=== PATIENT | female | born 1955 | race Caucasian/White ===

== ENCOUNTER → 2016-04-22 | Outpatient (CLI) | payer OTHER ==
[~2016-04-22] VITALS: Ht 147.3 cm; Wt 86.2 kg
[~2016-04-22] MED LIST: ATOR1TAB18 PO; ECOT81TA5 PO; FURO20TA2 PO; LIDOCAINE 2% INJ 100 MG/5 ML SDV (FOR ANES.) As Ordered ONE; METF1000 PO; NOVOINJ3 SC; NS 1,000 ML IV SCH; PROPOFOL 200 MG/20 ML VIAL As Ordered ONE; TOUJ1.2I SC
--- NOTE | 2016-04-22 08:07 | ROOR ---
Patient Name: Eleonora Izquierdo Procedure Date: 04/22/2016 7:35 AM Date of : 1955 Age: 61 Room: [facility] Gender: Female Note Status: Finalized Procedure: Colonoscopy to Cecum + Cold Snare Polypectomy Indications: Iron deficiency anemia, Follow-up for history of adenomatous polyps in the colon, Abnormal barium enema Providers: Nicolás Silver MD Referring MD: MAURI BENNETT MD Requesting Provider: Medicines: Monitored Anesthesia Care Complications: No immediate complications. Procedure: Pre-Anesthesia Assessment: - The heart rate, respiratory rate, oxygen saturations, blood pressure, adequacy of pulmonary ventilation, and response to care were monitored throughout the procedure. The Colonoscope was introduced through the anus and advanced to the cecum, identified by appendiceal orifice and ileocecal valve. The colonoscopy was performed without difficulty. The patient tolerated the procedure well. The quality of the bowel preparation was excellent. Findings: The perianal and digital rectal examinations were normal. Non-bleeding internal hemorrhoids were found during retroflexion. The hemorrhoids were small and Grade I (internal hemorrhoids that do not prolapse). A small polyp was found in the mid ascending colon. The polyp was sessile. The polyp was removed with a cold snare. Resection and retrieval were complete. The exam was otherwise without abnormality on direct and retroflexion views. Impression: - Non-bleeding internal hemorrhoids. - One small polyp in the mid ascending colon, removed with a cold snare. Resected and retrieved. - The examination was otherwise normal on direct and retroflexion views. - The exam was otherwise normal to the cecum. Recommendation: - Discharge patient to home. - Continue present medications. - Await pathology results. - Telephone GI clinic for pathology results in 1 week. - Repeat colonoscopy in 5 years for surveillance based on pathology results. - Return to referring physician. - The findings and recommendations were discussed with the patient's family. Nicolás Silver MD Nicolás Silver MD 04/22/2016 8:07:14 AM This report has been signed electronically. Number of Addenda: 0 Note Initiated On: 04/22/2016 7:35 AM Estimated Blood Loss: Estimated blood loss: none.
[2016-04-22 08:27] VITALS: BP 178/89
== END | disposition home or self-care (01) ==
LOC: M OPP 06:30
PROVIDERS: ATTEND Internal Medicine Gastroenterology
DX: D50.9 Iron deficiency anemia, unspecified (principal); K64.0 First degree hemorrhoids; D12.2 Benign neoplasm of ascending colon; E78.00 Pure hypercholesterolemia, unspecified; E11.9 Type 2 diabetes mellitus without complications; R06.83 Snoring; Z79.84 Long term (current) use of oral hypoglycemic drugs; Z79.899 Other long term (current) drug therapy; Z79.4 Long term (current) use of insulin

== ENCOUNTER 2017-08-12 12:39 | Emergency (ER) | payer OTHER ==
[2017-08-12] MEDS: NS 1,000 ML IV (13:00)
[2017-08-12] MEDS: CEFTAROLINE FOSAMIL 600 MG in D5W MINI-BAG PLUS 50 ML IV (13:00)
[2017-08-12 13:26] LABS: HEMATOCRIT 35.5 % (36.0-47.0); HEMOGLOBIN 11.1 g/dl (12.0-15.5); MEAN CORPUSCULAR HEMOGLOBIN 27.9 pg (27.0-33.0); MEAN CORPUSCULAR HGB CONC 31.3 g/dl (32.0-36.5); MEAN CORPUSCULAR VOLUME 89.2 fl (80.0-96.0); PLATELET COUNT, AUTOMATED 301 10^3/uL (150-450); RED BLOOD COUNT 3.98 10^6/uL (4.00-5.40); RED CELL DISTRIBUTION WIDTH 16.8 % (11.5-14.5); WHITE BLOOD COUNT 9.5 10^3/uL (4.0-10.0)
[2017-08-12] MEDS: ACETAMINOPHEN TAB 650MG DOSE (2X325MG) PO (13:32)
[2017-08-12 13:46] LABS: ANION GAP 5 MEQ/L (8-16); BLOOD UREA NITROGEN 21 MG/DL (7-18); CALCIUM LEVEL 8.8 MG/DL (8.8-10.2); CARBON DIOXIDE LEVEL 29 MEQ/L (21-32); CHLORIDE LEVEL 106 MEQ/L (98-107); CREATININE FOR GFR 0.65 MG/DL (0.55-1.30); GLOMERULAR FILTRATION RATE > 60.0 (>45); GLUCOSE, FASTING 145 MG/DL (70-100); POTASSIUM SERUM 4.2 MEQ/L (3.5-5.1); SODIUM LEVEL 140 MEQ/L (136-145)
== END 2017-08-12 15:29 | disposition home or self-care (01) ==
LOC: M ED 12:39
DX: L03.311 Cellulitis of abdominal wall (principal); E11.9 Type 2 diabetes mellitus without complications
CPT/HCPCS: J0712

== ENCOUNTER → 2017-08-12 | Day surgery (SDC) | payer OTHER ==
[~2017-08-12] MED LIST changes: -ATOR1TAB18 PO; +AcetaZOLAMIDE 500MG INJECTION (J1120) IV; -ECOT81TA5 PO; -FURO20TA2 PO; -LIDOCAINE 2% INJ 100 MG/5 ML SDV (FOR ANES.) As Ordered ONE; +LIDOCAINE 3.5 % 1ML OPHTH TOPICAL GEL OU; +LR 1,000 ML IV; +MANNITOL 20% BAG 250 ML IV; -METF1000 PO; -NOVOINJ3 SC; -NS 1,000 ML IV SCH; +OFLOXACIN 0.3 % (OCUFLOX) OPTH SOL 5ML OD; -PROPOFOL 200 MG/20 ML VIAL As Ordered ONE; -TOUJ1.2I SC
[2017-08-12] MEDS: MAXITROL OPHTH OINT 3.5 GM As Ordered (06:53)
[2017-08-12] MEDS: LIDOCAINE 2% W/EPIN INJ 20ML **PRES FREE As Ordered (06:53)
[2017-08-12] MEDS: mitoMYcin 0.2 MG/VIAL KIT FOR OPHTHALMIC USE (J7315 PER 0.2MG) As Ordered (06:53)
[2017-08-12 12:33] LABS: BEDSIDE GLUCOSE 163 MG/DL (80-115)
== END | disposition home or self-care (01) ==
LOC: M SDC 11:43
DX: Z53.09 Procedure and treatment not carried out because of other contraindication (principal); H40.10X0 Unspecified open-angle glaucoma, stage unspecified; R50.9 Fever, unspecified; R53.81 Other malaise; R21 Rash and other nonspecific skin eruption

== ENCOUNTER → 2023-11-10 | Outpatient (CLI) | payer MEDICARE ==
[~2023-11-10] MED LIST changes: +ATOR80TA59 PO; -AcetaZOLAMIDE 500MG INJECTION (J1120) IV; +BACT800T5 PO; +CLOP75TA99 PO; +COMB0.2S OU; +ECOT81TA5 PO; +FARX1TAB3 PO; +FIAS100I2 SC; +FURO20TA2 PO; +FURO40TA2; +FURO40TA2 PO; +LATA0.0013 OU; -LIDOCAINE 3.5 % 1ML OPHTH TOPICAL GEL OU; +LISI40TA4 PO; -LR 1,000 ML IV; -MANNITOL 20% BAG 250 ML IV; +METF10004 PO; +METO25TA4 PO; +NOVOINJ3 SC; -OFLOXACIN 0.3 % (OCUFLOX) OPTH SOL 5ML OD; +PROP325C11 PO; +ROSU20TA61 PO; +SPIR-10 PO; +TOUJ1.2I SC; +TRUL0.5I
== END ==
LOC: M PAIN 13:00
PROVIDERS: ATTEND Nurse Practitioner Family
DX: M79.12 Myalgia of auxiliary muscles, head and neck (principal); M54.2 Cervicalgia; M96.1 Postlaminectomy syndrome, not elsewhere classified; G89.29 Other chronic pain; E11.9 Type 2 diabetes mellitus without complications; E83.42 Hypomagnesemia; I10 Essential (primary) hypertension; E78.5 Hyperlipidemia, unspecified; K21.9 Gastro-esophageal reflux disease without esophagitis; Z79.82 Long term (current) use of aspirin; Z79.02 Long term (current) use of antithrombotics/antiplatelets; Z79.899 Other long term (current) drug therapy

== ENCOUNTER → 2024-01-12 | Outpatient (CLI) | payer MEDICARE, OTHER ==
[~2024-01-12] MED LIST changes: -ROSU20TA61 PO; +ROSU20TA86 PO; +TRIAMCINOLONE ACETONIDE SUSP 40MG/ML 1ML VIAL As Ordered ONE
== END ==
LOC: M PAIN 11:00
PROVIDERS: ATTEND Anesthesiology
DX: M79.12 Myalgia of auxiliary muscles, head and neck (principal); M79.18 Myalgia, other site; M54.2 Cervicalgia; E11.9 Type 2 diabetes mellitus without complications; E83.42 Hypomagnesemia; I10 Essential (primary) hypertension; E78.5 Hyperlipidemia, unspecified; K21.9 Gastro-esophageal reflux disease without esophagitis; Z79.01 Long term (current) use of anticoagulants; Z79.899 Other long term (current) drug therapy; Z79.82 Long term (current) use of aspirin; Z53.09 Procedure and treatment not carried out because of other contraindication

== ENCOUNTER → 2024-03-09 | Outpatient (CLI) | payer MEDICARE, OTHER ==
[~2024-03-09] MED LIST changes: -TRIAMCINOLONE ACETONIDE SUSP 40MG/ML 1ML VIAL As Ordered ONE
== END ==
LOC: M PAIN 10:15
PROVIDERS: ATTEND Anesthesiology
DX: M79.10 Myalgia, unspecified site (principal); M79.18 Myalgia, other site; M54.2 Cervicalgia; E11.9 Type 2 diabetes mellitus without complications; E83.42 Hypomagnesemia; I10 Essential (primary) hypertension; E78.5 Hyperlipidemia, unspecified; K21.9 Gastro-esophageal reflux disease without esophagitis; R10.13 Epigastric pain; Z79.82 Long term (current) use of aspirin; Z79.899 Other long term (current) drug therapy; Z79.01 Long term (current) use of anticoagulants

== ENCOUNTER 2024-04-12 10:53 | Emergency (ER) | payer MEDICARE ==
[~2024-04-12] VITALS: Ht 144.8 cm; Wt 88.0 kg
[2024-04-12] MEDS ORDERED: ELIQ2.5T (11:13)
[2024-04-12 12:17] LABS: BASO # 0.1 10^3/uL (0.0-0.2); BASO % 1.1 % (0.0-1.0); EOS # 0.2 10^3/uL (0.0-0.5); EOS % 3.9 % (0.0-3.0); HEMATOCRIT 44.8 % (36.0-47.0); HEMOGLOBIN 13.9 g/dl (12.0-15.5); LYMPH # 1.8 10^3/uL (1.5-5.0); LYMPH % 39.4 % (24.0-44.0); MEAN CORPUSCULAR HEMOGLOBIN 29.2 pg (27.0-33.0); MEAN CORPUSCULAR VOLUME 94.1 fl (80.0-96.0); MONO # 0.3 10^3/uL (0.0-0.8); MONO % 6.2 % (2.0-8.0); NEUTROPHILS # 2.3 10^3/uL (1.5-8.5); NEUTROPHILS % 49.2 % (36.0-66.0); PLATELET COUNT, AUTOMATED 177 10^3/uL (150-450); RED BLOOD COUNT 4.76 10^6/uL (4.00-5.40); WHITE BLOOD COUNT 4.7 10^3/uL (4.0-10.0)
[2024-04-12 12:35] LABS: INR 0.95; PARTIAL THROMBOPLASTIN TIME 28.8 SECONDS (24.8-34.2)
[2024-04-12 12:40] LABS: AMYLASE 55 U/L (30-118)
[2024-04-12 12:47] LABS: PROCALCITONIN 0.11 ng/ml
[2024-04-12 12:48] LABS: ALKALINE PHOSPHATASE 176 U/L (35-104); ALT/SGPT 34 U/L (7.0-40); AST/SGOT 87 U/L (<34); BILIRUBIN,DIRECT 0.2 MG/DL (<0.4); BILIRUBIN,TOTAL 0.5 MG/DL (0.3-1.2); BLOOD UREA NITROGEN 34 MG/DL (9-23); CALCIUM LEVEL 8.1 MG/DL (8.3-10.6); CARBON DIOXIDE LEVEL 27 MMOL/L (20-31); CHLORIDE LEVEL 108 MMOL/L (98-107); CREATININE FOR GFR 0.86 MG/DL (0.55-1.30); GLOMERULAR FILTRATION RATE > 60.0 (>45); GLUCOSE, FASTING 114 MG/DL (74-106); LIPASE 78 U/L (12-53); POTASSIUM SERUM 5.5 MMOL/L (3.5-5.1); SODIUM LEVEL 141 MMOL/L (136-145); TOTAL PROTEIN 8.5 G/DL (5.7-8.2)
[2024-04-12 17:24] VITALS: TEMP 97
[2024-04-12 17:59] LABS: BLOOD UREA NITROGEN 34 MG/DL (9-23); CALCIUM LEVEL 7.8 MG/DL (8.3-10.6); CARBON DIOXIDE LEVEL 26 MMOL/L (20-31); CHLORIDE LEVEL 111 MMOL/L (98-107); CREATININE FOR GFR 0.79 MG/DL (0.55-1.30); GLOMERULAR FILTRATION RATE > 60.0 (>45); GLUCOSE, FASTING 81 MG/DL (74-106); POTASSIUM SERUM 4.7 MMOL/L (3.5-5.1); SODIUM LEVEL 142 MMOL/L (136-145)
[2024-04-12 19:01] VITALS: BP 142/65; O2SAT 97
== END 2024-04-12 19:24 | disposition home or self-care (01) ==
LOC: M ED 10:53
DX: R18.8 Other ascites (principal); E11.9 Type 2 diabetes mellitus without complications; I25.2 Old myocardial infarction; K74.60 Unspecified cirrhosis of liver; Z86.79 Personal history of other diseases of the circulatory system; Z79.01 Long term (current) use of anticoagulants; Z79.811 Long term (current) use of aromatase inhibitors; Z79.899 Other long term (current) drug therapy

== ENCOUNTER → 2024-04-20 | Outpatient (CLI) | payer MEDICARE ==
[~2024-04-20] MED LIST changes: +ELIQ2.5T
[2024-04-20 12:25] VITALS: TEMP 98.9
[2024-04-20 13:17] VITALS: BP 150/65; O2SAT 98
[2024-04-20 13:21] VITALS: BP 128/46; O2SAT 99
[2024-04-20 13:24] VITALS: BP 120/60; O2SAT 100
== END ==
LOC: M IRPRO 12:10
PROVIDERS: ATTEND Family Medicine
DX: K74.60 Unspecified cirrhosis of liver (principal); R18.8 Other ascites
CPT/HCPCS: 49083; 96374; P9047

== ENCOUNTER 2024-05-19 13:16 | Inpatient (IN) | payer MEDICARE, OTHER ==
[~2024-05-19] VITALS: Ht 144.8 cm; Wt 90.7 kg
[~2024-05-19 13:16] MED LIST changes: -SPIR50TA4 PO
[2024-05-19 19:25] LABS: BASO # 0.1 10^3/uL (0.0-0.2); BASO % 1.3 % (0.0-1.0); EOS # 0.1 10^3/uL (0.0-0.5); EOS % 2.8 % (0.0-3.0); HEMATOCRIT 46.5 % (36.0-47.0); HEMOGLOBIN 14.5 g/dl (12.0-15.5); LYMPH # 2.2 10^3/uL (1.5-5.0); LYMPH % 47.5 % (24.0-44.0); MEAN CORPUSCULAR HEMOGLOBIN 29.1 pg (27.0-33.0); MEAN CORPUSCULAR HGB CONC 31.2 g/dl (32.0-36.5); MEAN CORPUSCULAR VOLUME 93.4 fl (80.0-96.0); MONO # 0.3 10^3/uL (0.0-0.8); NEUTROPHILS % 42.2 % (36.0-66.0); PLATELET COUNT, AUTOMATED 197 10^3/uL (150-450); RED BLOOD COUNT 4.98 10^6/uL (4.00-5.40); WHITE BLOOD COUNT 4.7 10^3/uL (4.0-10.0)
[2024-05-19 19:39] LABS: INR 0.98; PARTIAL THROMBOPLASTIN TIME 28.2 SECONDS (24.8-34.2); PROTHROMBIN TIME 13.3 SECONDS (12.5-14.5)
[2024-05-19 21:07] LABS: PROCALCITONIN 0.11 ng/ml
[2024-05-19 21:09] LABS: ALBUMIN 1.4 G/DL (3.2-5.2); ALKALINE PHOSPHATASE 183 U/L (35-104); ALT/SGPT 31 U/L (7.0-40); AST/SGOT 54 U/L (<34); BILIRUBIN,DIRECT 0.1 MG/DL (<0.4); BILIRUBIN,TOTAL 0.4 MG/DL (0.3-1.2); BLOOD UREA NITROGEN 22 MG/DL (9-23); CALCIUM LEVEL 6.8 MG/DL (8.3-10.6); CARBON DIOXIDE LEVEL 21 MMOL/L (20-31); CHLORIDE LEVEL 114 MMOL/L (98-107); CREATININE FOR GFR 0.63 MG/DL (0.55-1.30); GLOMERULAR FILTRATION RATE > 60.0 (>45); GLUCOSE, FASTING 82 MG/DL (74-106); POTASSIUM SERUM 4.5 MMOL/L (3.5-5.1); SODIUM LEVEL 142 MMOL/L (136-145); TOTAL PROTEIN 6.5 G/DL (5.7-8.2)
[2024-05-19] MEDS ORDERED: SPIR50TA4 PO (22:13)
[2024-05-19] MEDS ORDERED: MED REC IN PROGRESS XX SCH (22:15)
[2024-05-19] MEDS ORDERED: DEXTROSE 50% 50ML SYRINGE IV PRN (22:50)
[2024-05-19] MEDS ORDERED: MOM 30ML SUSPENSION UDC PO PRN (22:50)
[2024-05-19] MEDS ORDERED: GLUCAGON INJ 1MG VIAL SC PRN (22:50)
[2024-05-19] MEDS ORDERED: GLUCOSE 4 GM CHEW PO PRN (22:50)
[2024-05-19] MEDS: cefTRIAXone SOD 1 GM in DEXTROSE 5% (D5W) ADV/MINI-BAG 50 ML IV SCH (23:13)
[2024-05-19] MEDS: INSULIN LISPRO (NovoLOG) PER UNIT SC SCH (23:25)
[2024-05-20] VITALS (9 sets, daily range): BP systolic 142–169; BP diastolic 42–74; TEMP 98.1–98.8; O2SAT 95–100
[2024-05-20] MEDS ORDERED: HOME MED LIST COMPLETE! XX SCH (02:05)
[2024-05-20 06:43] LABS: HEMATOCRIT 40.2 % (36.0-47.0); HEMOGLOBIN 12.6 g/dl (12.0-15.5); MEAN CORPUSCULAR HGB CONC 31.3 g/dl (32.0-36.5); MEAN CORPUSCULAR VOLUME 92.6 fl (80.0-96.0); PLATELET COUNT, AUTOMATED 177 10^3/uL (150-450); RED BLOOD COUNT 4.34 10^6/uL (4.00-5.40); WHITE BLOOD COUNT 4.7 10^3/uL (4.0-10.0)
[2024-05-20 07:18] LABS: ALBUMIN 1.4 G/DL (3.2-5.2); ALKALINE PHOSPHATASE 193 U/L (35-104); ALT/SGPT 28 U/L (7.0-40); AST/SGOT 51 U/L (<34); BILIRUBIN,TOTAL 0.3 MG/DL (0.3-1.2); BLOOD UREA NITROGEN 27 MG/DL (9-23); CALCIUM LEVEL 7.8 MG/DL (8.3-10.6); CARBON DIOXIDE LEVEL 22 MMOL/L (20-31); CHLORIDE LEVEL 109 MMOL/L (98-107); CREATININE FOR GFR 0.77 MG/DL (0.55-1.30); GLOMERULAR FILTRATION RATE > 60.0 (>45); GLUCOSE, FASTING 133 MG/DL (74-106); POTASSIUM SERUM 4.6 MMOL/L (3.5-5.1); SODIUM LEVEL 138 MMOL/L (136-145); TOTAL PROTEIN 6.7 G/DL (5.7-8.2)
[2024-05-20] MEDS ORDERED: SPIRONOLACTONE 25 MG TAB PO SCH (09:00)
[2024-05-20] MEDS ORDERED: PROPAFENONE 150 MG TAB PO SCH (09:00)
[2024-05-20] MEDS: ROSUVASTATIN 10 MG TAB (CRESTOR) PO SCH (09:04)
[2024-05-20] MEDS: FUROSEMIDE 40 MG TAB PO SCH (09:04)
[2024-05-20] MEDS: lisinopriL 40MG TAB PO SCH (09:05)
[2024-05-20] MEDS: METOPROLOL TART 25 MG TABLET PO SCH (09:06)
[2024-05-20] MEDS: SPIRONOLACTONE 50 MG TAB PO SCH (09:06)
[2024-05-20] MEDS: INSULIN LISPRO (NovoLOG) PER UNIT SC SCH ×2 (18:20→20:04)
[2024-05-21 02:43] VITALS: BP 144/59; TEMP 98.6; O2SAT 96
[2024-05-21 04:41] VITALS: BP 141/56; TEMP 98.4; O2SAT 96
[2024-05-21 06:26] LABS: HEMATOCRIT 37.8 % (36.0-47.0); HEMOGLOBIN 11.6 g/dl (12.0-15.5); MEAN CORPUSCULAR HEMOGLOBIN 28.7 pg (27.0-33.0); MEAN CORPUSCULAR HGB CONC 30.7 g/dl (32.0-36.5); MEAN CORPUSCULAR VOLUME 93.6 fl (80.0-96.0); PLATELET COUNT, AUTOMATED 153 10^3/uL (150-450); RED BLOOD COUNT 4.04 10^6/uL (4.00-5.40); WHITE BLOOD COUNT 4.6 10^3/uL (4.0-10.0)
[2024-05-21 07:03] LABS: ALBUMIN 1.9 G/DL (3.2-5.2); ALKALINE PHOSPHATASE 190 U/L (35-104); ALT/SGPT 27 U/L (7.0-40); AST/SGOT 50 U/L (<34); BILIRUBIN,TOTAL 0.4 MG/DL (0.3-1.2); BLOOD UREA NITROGEN 26 MG/DL (9-23); CALCIUM LEVEL 8.1 MG/DL (8.3-10.6); CARBON DIOXIDE LEVEL 23 MMOL/L (20-31); CHLORIDE LEVEL 111 MMOL/L (98-107); CREATININE FOR GFR 0.83 MG/DL (0.55-1.30); GLOMERULAR FILTRATION RATE > 60.0 (>45); GLUCOSE, FASTING 122 MG/DL (74-106); POTASSIUM SERUM 4.2 MMOL/L (3.5-5.1); SODIUM LEVEL 143 MMOL/L (136-145); TOTAL PROTEIN 6.6 G/DL (5.7-8.2)
[2024-05-21 08:20] VITALS: BP 142/58
== END 2024-05-21 10:30 | disposition home or self-care (01) | DRG 433 ==
LOC: M ED 13:16 → M ED INP 22:47 → M MSPAV 05-20 11:40
PROVIDERS: ADMIT Student in an Organized Health Care Education/Training Program; ATTEND Internal Medicine
PROC: 30233J1 Transfusion of Nonautologous Serum Albumin into Peripheral Vein, Percutaneous Approach (ICD-10-PCS; 2024-05-20)
PROC: 0W9G3ZZ Drainage of Peritoneal Cavity, Percutaneous Approach (ICD-10-PCS; principal; 2024-05-20 15:00)
DX: K74.60 Unspecified cirrhosis of liver (principal); R18.8 Other ascites; E11.42 Type 2 diabetes mellitus with diabetic polyneuropathy; I10 Essential (primary) hypertension; E78.5 Hyperlipidemia, unspecified; M54.9 Dorsalgia, unspecified; G89.29 Other chronic pain; D47.2 Monoclonal gammopathy; H40.9 Unspecified glaucoma; I87.2 Venous insufficiency (chronic) (peripheral); K21.9 Gastro-esophageal reflux disease without esophagitis; I25.2 Old myocardial infarction; E66.9 Obesity, unspecified; Z98.84 Bariatric surgery status; Z90.79 Acquired absence of other genital organ(s); Z87.891 Personal history of nicotine dependence; Z79.01 Long term (current) use of anticoagulants; Z79.4 Long term (current) use of insulin; Z79.899 Other long term (current) drug therapy

== ENCOUNTER → 2024-05-19 | Outpatient (REF) | payer OTHER ==
[~2024-05-19] MED LIST changes: -ELIQ2.5T; +ELIQ2.5T PO; +SPIR50TA4 PO
[2024-05-23 14:32] LABS: FREE KAPPA LIGHT CHAINS URINE 785.54 mg/L (<=32.90); FREE LAMBDA LIGHT CHAINS URINE 30.35 mg/L (<=3.79); KAPPA/LAMBDA RATIO URINE 25.88 (<=8.69)
== END ==
LOC: M LAB REF 12:50
PROVIDERS: ATTEND Internal Medicine Hematology & Oncology
DX: C90.00 Multiple myeloma not having achieved remission (principal)

== ENCOUNTER → 2024-05-27 | Outpatient (CLI) | payer MEDICARE ==
[~2024-05-27] MED LIST changes: +SPIR50TA4 PO
[2024-05-27 13:18] LABS: HEPATITIS B SURFACE ANTIBODY NEGATIVE (POSITIVE)
[2024-05-27 13:29] LABS: HEPATITIS B SURFACE ANTIGEN NEGATIVE (NEGATIVE)
[2024-05-27 13:50] LABS: HEPATITIS B CORE ANTIBODY IGM NEGATIVE (NEGATIVE); HEPATITIS C VIRUS ABY INDEX 0.16 INDEX (<0.8)
[2024-05-27 13:52] LABS: ALBUMIN 1.9 G/DL (3.2-5.2); ALKALINE PHOSPHATASE 220 U/L (35-104); ALT/SGPT 38 U/L (7.0-40); AST/SGOT 61 U/L (<34); BILIRUBIN,TOTAL 0.4 MG/DL (0.3-1.2); BLOOD UREA NITROGEN 29 MG/DL (9-23); CALCIUM LEVEL 8.2 MG/DL (8.3-10.6); CARBON DIOXIDE LEVEL 27 MMOL/L (20-31); CHLORIDE LEVEL 107 MMOL/L (98-107); CREATININE FOR GFR 0.82 MG/DL (0.55-1.30); GLOMERULAR FILTRATION RATE > 60.0 (>45); GLUCOSE, FASTING 140 MG/DL (74-106); POTASSIUM SERUM 4.8 MMOL/L (3.5-5.1); SODIUM LEVEL 140 MMOL/L (136-145)
[2024-05-27 14:25] VITALS: TEMP 97.4
[2024-05-27 15:31] VITALS: BP 134/66; O2SAT 98
[2024-05-30 17:12] LABS: ANTI-MITOCHONDRIAL ANTIBODY NEGATIVE (NEGATIVE)
[2024-05-31 12:57] LABS: ANA PATTERN Nuclear, Speckled (NEGATIVE); ANA SCREEN, IFA POSITIVE (NEGATIVE)
== END ==
LOC: M IRPRO 11:17
PROVIDERS: ATTEND Internal Medicine Gastroenterology
DX: R18.8 Other ascites (principal); K74.60 Unspecified cirrhosis of liver; C90.00 Multiple myeloma not having achieved remission; Z11.59 Encounter for screening for other viral diseases
CPT/HCPCS: 36415; 49083; 77075; 80053; 86038; 86039; 86255; 86705; 86706; 86803; 87340; 96374; P9047

== ENCOUNTER → 2024-05-27 | Outpatient (CLI) | payer MEDICARE | LOC: M RAD 11:26 | PROVIDERS: ATTEND Internal Medicine Hematology & Oncology | DX: C90.00 Multiple myeloma not having achieved remission (principal) ==

== ENCOUNTER → 2024-06-03 | Outpatient (CLI) | payer MEDICARE ==
[2024-06-03 13:52] VITALS: TEMP 99.1
[2024-06-03 15:05] VITALS: BP 135/65; O2SAT 98
== END ==
LOC: M IRPRO 13:27
PROVIDERS: ATTEND Internal Medicine Gastroenterology
DX: R18.8 Other ascites (principal)
CPT/HCPCS: 49083; 96365; P9047

== ENCOUNTER → 2024-06-10 | Outpatient (CLI) | payer MEDICARE ==
[2024-06-10 14:23] VITALS: BP 174/74; O2SAT 99
[2024-06-10 14:27] VITALS: BP 174/72; O2SAT 98
[2024-06-10 14:42] VITALS: BP 157/55; O2SAT 98
[2024-06-10 14:54] VITALS: BP 177/77; TEMP 97.2; O2SAT 98
== END ==
LOC: M IRPRO 12:48
PROVIDERS: ATTEND Internal Medicine Gastroenterology
DX: R18.8 Other ascites (principal)
CPT/HCPCS: 49083; 96365; P9047

== ENCOUNTER → 2024-06-17 | Outpatient (CLI) | payer MEDICARE ==
[2024-06-17 13:37] VITALS: BP 147/68; TEMP 97.6; O2SAT 98
[2024-06-17 13:46] VITALS: BP 135/64; O2SAT 99
[2024-06-17 14:00] VITALS: BP 132/56; O2SAT 98
[2024-06-17 14:15] VITALS: BP 140/63; O2SAT 99
== END ==
LOC: M IRPRO 12:15
PROVIDERS: ATTEND Internal Medicine Gastroenterology
DX: R18.8 Other ascites (principal)
CPT/HCPCS: 49083; 96365; P9047

== ENCOUNTER → 2024-06-21 | Outpatient (CLI) | payer MEDICARE, OTHER ==
[~2024-06-21] MED LIST changes: +LIDOCAINE 1% MDV 20ML VIAL IM ONE; +NS (Normal Saline) 0.9% 1,000 ML IV SCH
[2024-06-21 08:24] VITALS: TEMP 98.2
[2024-06-21 08:37] LABS: BASO # 0.1 10^3/uL (0.0-0.2); BASO % 0.8 % (0.0-1.0); EOS # 0.2 10^3/uL (0.0-0.5); EOS % 2.5 % (0.0-3.0); HEMATOCRIT 42.6 % (36.0-47.0); HEMOGLOBIN 13.3 g/dl (12.0-15.5); MEAN CORPUSCULAR HEMOGLOBIN 29.4 pg (27.0-33.0); MEAN CORPUSCULAR HGB CONC 31.2 g/dl (32.0-36.5); MEAN CORPUSCULAR VOLUME 94.2 fl (80.0-96.0); MONO # 0.4 10^3/uL (0.0-0.8); MONO % 6.2 % (2.0-8.0); NEUTROPHILS # 3.5 10^3/uL (1.5-8.5); NEUTROPHILS % 57.3 % (36.0-66.0); PLATELET COUNT, AUTOMATED 182 10^3/uL (150-450); RED BLOOD COUNT 4.52 10^6/uL (4.00-5.40); WHITE BLOOD COUNT 6.1 10^3/uL (4.0-10.0)
[2024-06-21 09:40] VITALS: BP 128/57; O2SAT 96
[2024-06-21] MEDS: LIDOCAINE 1% MDV 20ML VIAL IM STA (09:48)
== END ==
LOC: M IRPRO 07:58
PROVIDERS: ATTEND Internal Medicine Hematology & Oncology
DX: C90.00 Multiple myeloma not having achieved remission (principal); K74.60 Unspecified cirrhosis of liver; R18.8 Other ascites

== ENCOUNTER → 2024-06-21 | Outpatient (CLI) | payer MEDICARE ==
[~2024-06-21] MED LIST changes: -LIDOCAINE 1% MDV 20ML VIAL IM ONE; -NS (Normal Saline) 0.9% 1,000 ML IV SCH
[2024-06-21 09:04] LABS: ALBUMIN 2.2 G/DL (3.2-5.2); BILIRUBIN,TOTAL 0.5 MG/DL (0.3-1.2); CALCIUM LEVEL 8.3 MG/DL (8.3-10.6); CREATININE FOR GFR 1.07 MG/DL (0.55-1.30); GLOMERULAR FILTRATION RATE 54.1 (>45); POTASSIUM SERUM 4.5 MMOL/L (3.5-5.1); TOTAL PROTEIN 6.8 G/DL (5.7-8.2)
== END ==
LOC: M LAB 08:06
PROVIDERS: ATTEND Internal Medicine Gastroenterology
DX: K74.60 Unspecified cirrhosis of liver (principal); R18.8 Other ascites

== ENCOUNTER → 2024-06-24 | Outpatient (CLI) | payer MEDICARE ==
[2024-06-24 13:10] VITALS: TEMP 98.1
[2024-06-24 14:16] VITALS: BP 131/60; O2SAT 99
[2024-06-24 14:26] VITALS: BP 123/60; O2SAT 100
[2024-06-24 14:40] VITALS: BP 145/65; O2SAT 99
[2024-06-24 14:45] VITALS: BP 127/60; O2SAT 99
== END ==
LOC: M IRPRO 13:04
PROVIDERS: ATTEND Internal Medicine Gastroenterology
DX: R18.8 Other ascites (principal)
CPT/HCPCS: 49083; 96365; P9047

== ENCOUNTER → 2024-07-07 | Outpatient (CLI) | payer MEDICARE ==
[2024-07-07 12:08] VITALS: TEMP 97.6
[2024-07-07 12:42] VITALS: BP 129/62; O2SAT 95
[2024-07-07 12:48] VITALS: BP 129/56; O2SAT 96
[2024-07-07 12:52] VITALS: BP 128/59; O2SAT 96
[2024-07-07 12:59] VITALS: BP 126/54; O2SAT 96
[2024-07-07 13:00] VITALS: BP 138/60; O2SAT 96
== END ==
LOC: M IRPRO 11:57
PROVIDERS: ATTEND Internal Medicine Gastroenterology
DX: R18.8 Other ascites (principal)
CPT/HCPCS: 49083; 96365; P9047

== ENCOUNTER → 2024-07-14 | Outpatient (CLI) | payer MEDICARE | LOC: M IRPRO 10:32 | PROVIDERS: ATTEND Internal Medicine Gastroenterology | DX: R18.8 Other ascites (principal) ==

== ENCOUNTER → 2024-07-27 | Outpatient (CLI) | payer MEDICARE ==
[2024-07-27 16:12] LABS: EOS # 0.2 10^3/uL (0.0-0.5); EOS % 5.2 % (0.0-3.0); HEMATOCRIT 41.2 % (36.0-47.0); HEMOGLOBIN 12.7 g/dl (12.0-15.5); LYMPH # 1.5 10^3/uL (1.5-5.0); LYMPH % 37.1 % (24.0-44.0); MEAN CORPUSCULAR HEMOGLOBIN 29.7 pg (27.0-33.0); MEAN CORPUSCULAR HGB CONC 30.8 g/dl (32.0-36.5); MEAN CORPUSCULAR VOLUME 96.3 fl (80.0-96.0); MONO # 0.2 10^3/uL (0.0-0.8); MONO % 5.9 % (2.0-8.0); NEUTROPHILS # 2.1 10^3/uL (1.5-8.5); NEUTROPHILS % 50.8 % (36.0-66.0); PLATELET COUNT, AUTOMATED 187 10^3/uL (150-450); RED BLOOD COUNT 4.28 10^6/uL (4.00-5.40); WHITE BLOOD COUNT 4.1 10^3/uL (4.0-10.0)
[2024-07-27 16:29] LABS: PROTHROMBIN TIME 13.5 SECONDS (12.5-14.5)
[2024-07-27 16:39] LABS: ALBUMIN 2.2 G/DL (3.2-5.2); BILIRUBIN,TOTAL 0.5 MG/DL (0.3-1.2); CALCIUM LEVEL 8.3 MG/DL (8.3-10.6); CREATININE FOR GFR 0.81 MG/DL (0.55-1.30); GLOMERULAR FILTRATION RATE 78.5 (>45); POTASSIUM SERUM 4.7 MMOL/L (3.5-5.1); TOTAL PROTEIN 7.3 G/DL (5.7-8.2)
== END ==
LOC: M LAB 14:46
PROVIDERS: ATTEND Internal Medicine Gastroenterology
DX: K74.60 Unspecified cirrhosis of liver (principal); R18.8 Other ascites

== ENCOUNTER → 2024-07-27 | Outpatient (CLI) | payer MEDICARE ==
[2024-07-27 15:47] VITALS: TEMP 97.6
[2024-07-27 16:01] VITALS: BP 157/72; O2SAT 98
[2024-07-27 16:04] VITALS: BP 163/66; O2SAT 97
[2024-07-27 16:08] VITALS: BP 147/64; O2SAT 99
[2024-07-27 16:11] VITALS: BP 138/68; O2SAT 99
[2024-07-27 16:12] LABS: EOS # 0.2 10^3/uL (0.0-0.5); EOS % 4.5 % (0.0-3.0); HEMATOCRIT 41.8 % (36.0-47.0); HEMOGLOBIN 12.7 g/dl (12.0-15.5); LYMPH # 1.6 10^3/uL (1.5-5.0); LYMPH % 37.8 % (24.0-44.0); MEAN CORPUSCULAR HEMOGLOBIN 29.3 pg (27.0-33.0); MEAN CORPUSCULAR HGB CONC 30.4 g/dl (32.0-36.5); MEAN CORPUSCULAR VOLUME 96.3 fl (80.0-96.0); MONO # 0.3 10^3/uL (0.0-0.8); MONO % 6.2 % (2.0-8.0); NEUTROPHILS # 2.1 10^3/uL (1.5-8.5); NEUTROPHILS % 50.3 % (36.0-66.0); PLATELET COUNT, AUTOMATED 191 10^3/uL (150-450); RED BLOOD COUNT 4.34 10^6/uL (4.00-5.40); WHITE BLOOD COUNT 4.2 10^3/uL (4.0-10.0)
[2024-07-27 16:14] VITALS: BP 136/63; O2SAT 98
[2024-07-27 16:18] LABS: ERYTHROCYTE SEDIMENTATION RATE 120 mm/hr (0-30)
[2024-07-27 16:21] LABS: HEMOGLOBIN A1c 6.4 % (4.0-6.0)
[2024-07-27 16:25] LABS: APPEARANCE, URINE HAZY (CLEAR); BACTERIA, URINE AUTO 1+ (NEGATIVE); BILIRUBIN, URINE AUTO NEGATIVE (NEGATIVE); BLOOD, URINE BLOOD 1+ (NEGATIVE); COLOR, URINE YELLOW (YELLOW); GLUCOSE, URINE (UA) AUTO NEGATIVE (NEGATIVE); KETONE, URINE AUTO NEGATIVE (NEGATIVE); LEUKOCYTE ESTERASE, URINE AUTO 3+ (NEGATIVE); MUCUS, URINE SMALL (NEGATIVE); NITRITE, URINE AUTO NEGATIVE (NEGATIVE); PROTEIN, URINE AUTO NEGATIVE (NEGATIVE); RBC, URINE AUTO 44 /HPF (0-3); SPECIFIC GRAVITY URINE AUTO 1.012 (1.002-1.035); SQUAMOUS EPITHELIAL CELL UR AU 4 /HPF (0-6); UROBILINOGEN, URINE AUTO 0.2 mg/dL (0.0-2.0); WBC, URINE AUTO 32 /HPF (0-3)
[2024-07-27 16:39] LABS: CREATININE, URINE 58.5 MG/DL; MAU/CREAT RATIO 10.2 MCG/MG (0.0-30.0)
[2024-07-27 16:40] LABS: C REACTIVE PROTEIN QUANTITATIV 0.55 MG/DL (<1.0); IRON (FE) 53 UG/DL (50-170)
[2024-07-27 16:42] LABS: FERRITIN 34.5 NG/ML (7.3-270.7)
[2024-07-27 16:55] LABS: HEPATITIS B SURFACE ANTIGEN NEGATIVE (NEGATIVE)
[2024-07-27 17:07] LABS: HIV 1&2 SCREEN NEGATIVE (NEGATIVE)
[2024-07-27 17:15] LABS: HEPATITIS B CORE ANTIBODY IGM NEGATIVE (NEGATIVE)
[2024-07-27 17:16] LABS: HEPATITIS C VIRUS ABY INDEX 0.06 INDEX (<0.8)
[2024-07-27 17:18] LABS: ALBUMIN 2.1 G/DL (3.2-5.2); ALKALINE PHOSPHATASE 147 U/L (35-104); ALT/SGPT 33 U/L (7.0-40); AST/SGOT 59 U/L (<34); BILIRUBIN,TOTAL 0.5 MG/DL (0.3-1.2); BLOOD UREA NITROGEN 26 MG/DL (9-23); CALCIUM LEVEL 8.3 MG/DL (8.3-10.6); CARBON DIOXIDE LEVEL 25 MMOL/L (20-31); CHLORIDE LEVEL 107 MMOL/L (98-107); CHOLESTEROL LEVEL 104 MG/DL (<200); CHOLESTEROL RISK RATIO 2.75 (<5); CREATININE FOR GFR 0.84 MG/DL (0.55-1.30); GLOMERULAR FILTRATION RATE 75.2 (>45); GLUCOSE, FASTING 112 MG/DL (74-106); HDL CHOLESTEROL 37.7 MG/DL (>40); LDL CHOLESTEROL 49.5 MG/DL (<100); NON-HDL-C 66.3 MG/DL; POTASSIUM SERUM 4.7 MMOL/L (3.5-5.1); RHEUMATOID FACTOR QUANT > 900.0 IU/ML (<14); SODIUM LEVEL 137 MMOL/L (136-145); TOTAL PROTEIN 7.2 G/DL (5.7-8.2); TRIGLYCERIDES LEVEL 84 MG/DL (<150)
[2024-07-29 13:17] LABS: RNP ANTIBODY <1.0 NEG AI (<1.0 NEG); SM ANTIBODY <1.0 NEG AI (<1.0 NEG); SSA SJOGRENS A >8.0 POS AI (<1.0 NEG); SSB SJOGRENS B <1.0 NEG AI (<1.0 NEG)
[2024-07-29 19:57] LABS: ANTI-MITOCHONDRIAL ANTIBODY NEGATIVE (NEGATIVE)
[2024-07-31 23:32] LABS: COPPER PLASMA 103 mcg/dL (70-175)
[2024-08-01 17:28] LABS: ANA PATTERN Nuclear, Speckled (NEGATIVE); ANA SCREEN, IFA POSITIVE (NEGATIVE)
[2024-08-03 14:26] LABS: ANTI DS-DNA AB POSITIVE (NEGATIVE)
== END ==
LOC: M IRPRO 14:36
PROVIDERS: ATTEND Family Medicine
DX: R18.8 Other ascites (principal); E11.65 Type 2 diabetes mellitus with hyperglycemia; E78.5 Hyperlipidemia, unspecified; K74.60 Unspecified cirrhosis of liver; R63.4 Abnormal weight loss
CPT/HCPCS: 36415; 49083; 80053; 80061; 80074; 81001; 82043; 82140; 82525; 82728; 83036; 83540; 85025; 85610; 85652; 86038; 86039; 86140; 86200; 86235; 86255; 86316; 86431; 87389; 96374; P9047

== ENCOUNTER → 2024-08-03 | Outpatient (CLI) | payer MEDICARE ==
[2024-08-03 14:30] VITALS: TEMP 98.2
[2024-08-03 15:01] VITALS: BP 141/70; O2SAT 97
[2024-08-03 15:05] VITALS: BP 142/64; O2SAT 97
[2024-08-03 15:10] VITALS: BP 141/70; O2SAT 97
[2024-08-03 15:21] VITALS: BP 144/64; O2SAT 99
== END ==
LOC: M IRPRO 14:25
PROVIDERS: ATTEND Internal Medicine Gastroenterology
DX: R18.8 Other ascites (principal)
CPT/HCPCS: 49083; 96365; P9047

== ENCOUNTER → 2024-08-10 | Outpatient (CLI) | payer MEDICARE ==
[~2024-08-10] MED LIST changes: +ACETAMINOPHEN 325 MG TAB PO PRN
[2024-08-10 14:20] VITALS: TEMP 97.9
[2024-08-10 15:13] VITALS: BP 129/61; O2SAT 97
[2024-08-10 15:15] VITALS: BP 123/56; O2SAT 97
[2024-08-10 15:18] VITALS: BP 115/59; O2SAT 97
[2024-08-10 15:22] VITALS: BP 130/54; O2SAT 98
== END ==
LOC: M IRPRO 13:59
PROVIDERS: ATTEND Internal Medicine Gastroenterology
DX: R18.8 Other ascites (principal)
CPT/HCPCS: 49083; 96374; P9047

== ENCOUNTER → 2024-09-28 | Outpatient (CLI) | payer MEDICARE ==
[~2024-09-28] MED LIST changes: -ACETAMINOPHEN 325 MG TAB PO PRN; +LISI40TA10 PO; -LISI40TA4 PO
[2024-09-28 15:52] VITALS: TEMP 97.1
[2024-09-28 16:31] VITALS: BP 141/62; O2SAT 100
[2024-09-28 16:42] VITALS: BP 115/58; O2SAT 100
[2024-09-28 16:50] VITALS: BP 114/53; O2SAT 100
[2024-09-28 17:01] VITALS: BP 158/64; O2SAT 100
== END ==
LOC: M IRPRO 15:24
PROVIDERS: ATTEND Internal Medicine Gastroenterology
DX: R18.8 Other ascites (principal)
CPT/HCPCS: 49083; 96365; P9047

== ENCOUNTER → 2024-10-11 | Outpatient (CLI) | payer MEDICARE | LOC: M IRPRO 11:23 | PROVIDERS: ATTEND Internal Medicine Gastroenterology | DX: R18.8 Other ascites (principal) ==

== ENCOUNTER → 2024-10-20 | Outpatient (CLI) | payer MEDICARE ==
[~2024-10-20] MED LIST changes: +FURO20TA2
[2024-10-20 11:20] VITALS: TEMP 98
[2024-10-20 11:45] VITALS: BP 114/57; O2SAT 98
[2024-10-20 11:50] VITALS: BP 110/49; O2SAT 98
[2024-10-20 11:52] VITALS: BP 94/46; O2SAT 99
[2024-10-20 11:59] VITALS: BP 138/63; O2SAT 100
== END ==
LOC: M IRPRO 11:08
PROVIDERS: ATTEND Internal Medicine Gastroenterology
DX: R18.8 Other ascites (principal); D47.2 Monoclonal gammopathy
CPT/HCPCS: 49083; 84166; 96365; P9047

== ENCOUNTER → 2024-10-20 | Outpatient (REF) | payer MEDICARE ==
[2024-10-21 13:26] LABS: PROTEIN CREAT 24H RATIO 605 mg/g creat (<150); T PROTEIN CREAT 24HR RATIO 0.605 (<0.150); UPEP 24H CREATININE 0.72 g/24 h (0.50-2.15)
== END ==
LOC: M LAB REF 11:23
PROVIDERS: ATTEND Internal Medicine Hematology & Oncology
DX: D47.2 Monoclonal gammopathy (principal)

== ENCOUNTER → 2024-10-28 | Outpatient (CLI) | payer MEDICARE ==
[2024-10-28 16:18] VITALS: BP 170/70; TEMP 98.3; O2SAT 100
[2024-10-28 16:25] VITALS: BP 145/54; TEMP 98; O2SAT 100
[2024-10-28 16:42] VITALS: BP 123/60; O2SAT 98
[2024-10-28 16:57] VITALS: BP 129/58; O2SAT 100
[2024-10-28 17:00] VITALS: BP 120/58; O2SAT 100
[2024-10-28 17:14] VITALS: BP 115/53; O2SAT 100
== END ==
LOC: M IRPRO 14:45
PROVIDERS: ATTEND Internal Medicine Gastroenterology
DX: R18.8 Other ascites (principal)
CPT/HCPCS: 49083; 96365; P9047

== ENCOUNTER → 2024-11-03 | Outpatient (CLI) | payer MEDICARE ==
[2024-11-03 16:05] VITALS: TEMP 98.1
[2024-11-03 16:38] VITALS: BP 124/54; O2SAT 98
[2024-11-03 16:42] VITALS: BP 105/45; O2SAT 97
[2024-11-03 16:48] VITALS: BP 116/56; O2SAT 99
[2024-11-03 16:54] VITALS: BP 110/51; O2SAT 100
== END ==
LOC: M IRPRO 15:57
PROVIDERS: ATTEND Internal Medicine Gastroenterology
DX: R18.8 Other ascites (principal)
CPT/HCPCS: 49083; 96365; P9047

== ENCOUNTER → 2024-11-10 | Outpatient (CLI) | payer MEDICARE ==
[2024-11-10 15:18] VITALS: BP 123/58; TEMP 98.2; O2SAT 97
[2024-11-10 15:21] VITALS: TEMP 98; O2SAT 97
[2024-11-10 15:25] VITALS: BP 117/51; TEMP 97.8; O2SAT 98
[2024-11-10 15:27] VITALS: BP 114/80; TEMP 98; O2SAT 97
[2024-11-10 15:30] VITALS: BP 121/62; TEMP 98; O2SAT 98
== END ==
LOC: M IRPRO 14:42
PROVIDERS: ATTEND Internal Medicine Gastroenterology
DX: R18.8 Other ascites (principal)
CPT/HCPCS: 49083; 96374; P9047

== ENCOUNTER → 2024-11-11 | Outpatient (CLI) | payer MEDICARE, OTHER | LOC: M PLAIMG 13:35 | PROVIDERS: ATTEND Internal Medicine Hematology & Oncology | DX: D47.2 Monoclonal gammopathy (principal); I70.0 Atherosclerosis of aorta; I25.10 Atherosclerotic heart disease of native coronary artery without angina pectoris; J98.11 Atelectasis; J90 Pleural effusion, not elsewhere classified; R18.8 Other ascites ==

== ENCOUNTER → 2024-11-17 | Outpatient (CLI) | payer MEDICARE ==
[2024-11-17 15:10] VITALS: TEMP 98.2
[2024-11-17 15:41] VITALS: BP 132/60; O2SAT 99
[2024-11-17 15:46] VITALS: BP 128/59; O2SAT 100
[2024-11-17 15:50] VITALS: BP 137/59; O2SAT 100
[2024-11-17 15:52] VITALS: BP 133/60; O2SAT 100
== END ==
LOC: M IRPRO 15:01
PROVIDERS: ATTEND Internal Medicine Gastroenterology
DX: R18.8 Other ascites (principal)
CPT/HCPCS: 36415; 49083; 82553; 82784; 83521; 84155; 84165; 85025; 96365; P9047

== ENCOUNTER → 2024-11-24 | Outpatient (REF) | payer MEDICARE ==
[2024-11-25 12:18] LABS: PROTEIN CREAT 24H RATIO 526 mg/g creat (<150); T PROTEIN CREAT 24HR RATIO 0.526 (<0.150); UPEP 24H CREATININE 0.63 g/24 h (0.50-2.15)
[2024-11-29 07:01] LABS: 24 URINE ABNORMAL BAND 1 52.0 mg/24 h (NONE DETECTED); Urine Albumin % 8 %; Urine Alpha-1-Globulin % 4 %; Urine Alpha-2-Globulin % 8 %; Urine Beta Globulin % 33 %; Urine Gamma Globulin % 47 %
== END ==
LOC: M LAB REF 11:28
PROVIDERS: ATTEND Internal Medicine Hematology & Oncology
DX: D47.2 Monoclonal gammopathy (principal)

== ENCOUNTER → 2024-11-24 | Outpatient (CLI) | payer MEDICARE ==
[2024-11-24 11:51] VITALS: BP 140/59; TEMP 97.9; O2SAT 98
[2024-11-24 12:01] VITALS: BP 132/58; O2SAT 98
[2024-11-24 12:06] VITALS: BP 145/62; O2SAT 98
[2024-11-24 12:17] VITALS: BP 146/66; O2SAT 100
[2024-11-24 12:22] VITALS: BP 135/60; O2SAT 98
== END ==
LOC: M IRPRO 11:03
PROVIDERS: ATTEND Internal Medicine Gastroenterology
DX: R18.8 Other ascites (principal)
CPT/HCPCS: 49083; 84166; 86335; 96365; P9047

== ENCOUNTER → 2024-12-01 | Outpatient (CLI) | payer MEDICARE ==
[2024-12-01 11:22] VITALS: TEMP 98
[2024-12-01 11:40] VITALS: BP 138/62; O2SAT 97
[2024-12-01 11:47] VITALS: BP 133/56; O2SAT 98
[2024-12-01 11:54] VITALS: BP 140/65; O2SAT 99
[2024-12-01 12:03] VITALS: BP 141/61; O2SAT 99
[2024-12-01 12:09] VITALS: BP 135/62; O2SAT 99
== END ==
LOC: M IRPRO 11:11
PROVIDERS: ATTEND Internal Medicine Gastroenterology
DX: R18.8 Other ascites (principal)
CPT/HCPCS: 49083; 96365; P9047

== ENCOUNTER → 2024-12-08 | Outpatient (CLI) | payer MEDICARE ==
[2024-12-08 11:10] VITALS: TEMP 97.6
[2024-12-08 11:44] VITALS: BP 128/73; O2SAT 97
[2024-12-08 11:48] VITALS: BP 129/64; O2SAT 97
[2024-12-08 11:53] VITALS: BP 134/58; O2SAT 98
[2024-12-08 11:57] VITALS: BP 124/55; O2SAT 97
[2024-12-08 11:59] VITALS: BP 132/66
== END ==
LOC: M IRPRO 10:59
PROVIDERS: ATTEND Internal Medicine Gastroenterology
DX: R18.8 Other ascites (principal)
CPT/HCPCS: 49083; 96365; P9047

== ENCOUNTER → 2024-12-15 | Outpatient (CLI) | payer MEDICARE ==
[~2024-12-15] MED LIST changes: +ACETAMINOPHEN 325 MG TAB PO PRN
[2024-12-15 10:59] VITALS: TEMP 97.4
[2024-12-15 12:04] VITALS: BP 120/52; O2SAT 98
[2024-12-15 12:07] VITALS: BP 115/51; O2SAT 98
[2024-12-15 12:14] VITALS: BP 120/51; O2SAT 99
== END ==
LOC: M IRPRO 10:15
PROVIDERS: ATTEND Internal Medicine Gastroenterology
DX: R18.8 Other ascites (principal); D47.2 Monoclonal gammopathy
CPT/HCPCS: 36415; 49083; 80053; 83521; 83615; 84155; 84165; 85025; 85652; 86140; 86334; 96374; P9047

== ENCOUNTER → 2024-12-15 | Outpatient (CLI) | payer MEDICARE ==
[~2024-12-15] MED LIST changes: -ACETAMINOPHEN 325 MG TAB PO PRN
[2024-12-15 12:54] LABS: BASO # 0.1 10^3/uL (0.0-0.2); BASO % 0.9 % (0.0-1.0); EOS # 0.1 10^3/uL (0.0-0.5); EOS % 2.5 % (0.0-3.0); LYMPH # 1.7 10^3/uL (1.5-5.0); LYMPH % 31.9 % (24.0-44.0); MONO # 0.4 10^3/uL (0.0-0.8); MONO % 6.6 % (2.0-8.0); NEUTROPHILS # 3.1 10^3/uL (1.5-8.5); NEUTROPHILS % 57.9 % (36.0-66.0); PLATELET COUNT, AUTOMATED 199 10^3/uL (150-450)
[2024-12-15 13:07] LABS: ERYTHROCYTE SEDIMENTATION RATE > 130 mm/hr (0-30)
[2024-12-15 13:30] LABS: LDH LACTATE DEHYDROGENASE 431.0 U/L (120-246)
[2024-12-15 13:31] LABS: C REACTIVE PROTEIN QUANTITATIV 1.11 MG/DL (<1.0)
[2024-12-15 13:32] LABS: ALT/SGPT 62.0 U/L (7.0-40); AST/SGOT 99.0 U/L (<34); CALCIUM LEVEL 8.4 MG/DL (8.3-10.6); CARBON DIOXIDE LEVEL 16.0 MMOL/L (20-31); CHLORIDE LEVEL 111.0 MMOL/L (98-107); CREATININE FOR GFR 1.14 MG/DL (0.55-1.30); GLOMERULAR FILTRATION RATE 52.1 (>45); POTASSIUM SERUM 5.5 MMOL/L (3.5-5.1); SODIUM LEVEL 135.0 MMOL/L (136-145)
[2024-12-16 11:07] LABS: T P ELECTROPHORESIS SO 7.7 g/dL (6.1-8.1)
[2024-12-19 12:07] LABS: FREE KAPPA LIGHT CHAINS SERUM 607.5 mg/L (3.3-19.4); FREE LAMBDA LIGHT CHAINS SERUM 130.7 mg/L (5.7-26.3); KAPPA/LAMBDA RATIO SERUM 4.65 (0.26-1.65)
[2024-12-20 10:27] LABS: ALBUMIN SPEP 2.9 g/dL (3.8-4.8); ALPHA-1-GLOBULINS SO 0.3 g/dL (0.2-0.3); ALPHA-2-GLOBULINS SO 0.8 g/dL (0.5-0.9); BETA 2 GLOBULIN 0.6 g/dL (0.2-0.5); BETA-GLOBULIN SO 0.4 g/dL (0.4-0.6); GAMMA GLOBULINS SO 2.6 g/dL (0.8-1.7); SPEP ABN PROTEIN BAND 1 1.2 g/dL (NONE DETECTED)
== END ==
LOC: M LAB 10:17
PROVIDERS: ATTEND Internal Medicine Hematology & Oncology
DX: D47.2 Monoclonal gammopathy (principal)

== ENCOUNTER → 2024-12-20 | Outpatient (REF) | payer MEDICARE | LOC: M LAB REF 15:13 | PROVIDERS: ATTEND Internal Medicine Gastroenterology | DX: R19.7 Diarrhea, unspecified (principal); R19.4 Change in bowel habit ==

== ENCOUNTER → 2024-12-21 | Outpatient (POV) | payer MEDICARE ==
[~2024-12-21] VITALS: Ht 144.8 cm; Wt 73.2 kg
[2024-12-21 08:05] VITALS: BP 132/62; O2SAT 98
== END ==
LOC: M IRPOV 07:52
PROVIDERS: ATTEND Registered Nurse School
DX: K74.60 Unspecified cirrhosis of liver (principal); R18.8 Other ascites; Z79.899 Other long term (current) drug therapy; Z98.84 Bariatric surgery status; Z90.710 Acquired absence of both cervix and uterus; Z86.59 Personal history of other mental and behavioral disorders; Z87.891 Personal history of nicotine dependence; Z84.89 Family history of other specified conditions

== ENCOUNTER → 2024-12-22 | Outpatient (CLI) | payer MEDICARE ==
[~2024-12-22] MED LIST changes: +LIDOCAINE 1% MDV 20 ML VIAL SC ONE
[2024-12-22 11:25] VITALS: TEMP 99.3
[2024-12-22 11:49] VITALS: BP 130/68; O2SAT 97
[2024-12-22 11:52] VITALS: BP 144/61; O2SAT 98
[2024-12-22 11:56] VITALS: BP 147/62; O2SAT 98
[2024-12-22 12:00] VITALS: BP 143/63; O2SAT 99
[2024-12-22 12:03] VITALS: BP 127/60; O2SAT 100
== END ==
LOC: M IRPRO 11:19
PROVIDERS: ATTEND Internal Medicine Gastroenterology
DX: R18.8 Other ascites (principal)
CPT/HCPCS: 49083; 96374; P9047

== ENCOUNTER → 2024-12-23 | Outpatient (CLI) | payer MEDICARE ==
[~2024-12-23] MED LIST changes: -LIDOCAINE 1% MDV 20 ML VIAL SC ONE
== END ==
LOC: M PLAIMG 12:32
PROVIDERS: ATTEND Radiology Diagnostic Radiology
DX: K74.60 Unspecified cirrhosis of liver (principal); R00.1 Bradycardia, unspecified; I50.30 Unspecified diastolic (congestive) heart failure; I08.0 Rheumatic disorders of both mitral and aortic valves; I37.1 Nonrheumatic pulmonary valve insufficiency

== ENCOUNTER → 2025-01-02 | Outpatient (CLI) | payer MEDICARE ==
[2025-01-02 15:33] VITALS: BP 149/64; O2SAT 100
[2025-01-02 15:41] VITALS: BP 146/60; O2SAT 99
[2025-01-02 15:51] VITALS: BP 135/60; TEMP 97; O2SAT 100
[2025-01-02 16:00] VITALS: BP 132/68; TEMP 97; O2SAT 98
== END ==
LOC: M IRPRO 13:33
PROVIDERS: ATTEND Internal Medicine Gastroenterology
DX: R18.8 Other ascites (principal)
CPT/HCPCS: 49083; 96365; P9047

== ENCOUNTER → 2025-01-03 | Outpatient (CLI) | payer MEDICARE ==
[2025-01-03 12:15] LABS: BASO # 0.0 10^3/uL (0.0-0.2); BASO % 0.9 % (0.0-1.0); EOS # 0.2 10^3/uL (0.0-0.5); EOS % 3.5 % (0.0-3.0); LYMPH # 1.5 10^3/uL (1.5-5.0); LYMPH % 34.3 % (24.0-44.0); MONO # 0.3 10^3/uL (0.0-0.8); MONO % 7.2 % (2.0-8.0); NEUTROPHILS # 2.3 10^3/uL (1.5-8.5); NEUTROPHILS % 53.9 % (36.0-66.0); PLATELET COUNT, AUTOMATED 164 10^3/uL (150-450)
[2025-01-03 12:27] LABS: INR 1.01
[2025-01-03 14:22] LABS: CREATININE, URINE 84.8 MG/DL; MALB URINE SIEMENS 4.0 MG/L; MAU/CREAT RATIO 4.7 MCG/MG (0.0-30.0)
[2025-01-03 15:16] LABS: ALT/SGPT 43.0 U/L (7.0-40); AST/SGOT 69.0 U/L (<34); CALCIUM LEVEL 8.1 MG/DL (8.3-10.6); CARBON DIOXIDE LEVEL 17.0 MMOL/L (20-31); CHLORIDE LEVEL 113.0 MMOL/L (98-107); CHOLESTEROL LEVEL 99.0 MG/DL (<200); CHOLESTEROL RISK RATIO 3.02 (<5); CREATININE FOR GFR 0.97 MG/DL (0.55-1.30); GLOMERULAR FILTRATION RATE 63.3 (>45); LDL CHOLESTEROL 47.3 MG/DL (<100); NON-HDL-C 66.3 MG/DL; POTASSIUM SERUM 5.4 MMOL/L (3.5-5.1); SODIUM LEVEL 139.0 MMOL/L (136-145); TRIGLYCERIDES LEVEL 95.0 MG/DL (<150)
[2025-01-03 15:17] LABS: ESTIMATED AVERAGE GLUCOSE 143.0 MG/DL (60-110)
== END ==
LOC: M LAB 10:30
PROVIDERS: ATTEND Family Medicine
DX: Z01.818 Encounter for other preprocedural examination (principal); E11.65 Type 2 diabetes mellitus with hyperglycemia; E78.5 Hyperlipidemia, unspecified

== ENCOUNTER → 2025-01-05 | Outpatient (CLI) | payer MEDICARE ==
[~2025-01-05] MED LIST changes: +ISOVUE-370 76% 100 ML VIAL As Ordered ONE
== END ==
LOC: M RAD 08:48
PROVIDERS: ATTEND Radiology Diagnostic Radiology
DX: K74.60 Unspecified cirrhosis of liver (principal); J90 Pleural effusion, not elsewhere classified; J98.11 Atelectasis; K80.20 Calculus of gallbladder without cholecystitis without obstruction; R16.1 Splenomegaly, not elsewhere classified; M79.89 Other specified soft tissue disorders; I70.0 Atherosclerosis of aorta; I85.10 Secondary esophageal varices without bleeding
CPT/HCPCS: 74177; Q9967

== ENCOUNTER → 2025-01-10 | Outpatient (CLI) | payer MEDICARE ==
[~2025-01-10] MED LIST changes: +ACETAMINOPHEN 325 MG TAB PO PRN; -ISOVUE-370 76% 100 ML VIAL As Ordered ONE
[2025-01-10 15:11] VITALS: BP 137/65; O2SAT 99
[2025-01-10 15:16] VITALS: BP 142/62; O2SAT 99
[2025-01-10 15:20] VITALS: BP 143/66; O2SAT 99
[2025-01-10 15:24] VITALS: BP 142/63; O2SAT 99
[2025-01-10 15:28] VITALS: BP 128/62; O2SAT 100
[2025-01-10 16:37] VITALS: BP 147/63; O2SAT 99
== END ==
LOC: M IRPRO 14:16
PROVIDERS: ATTEND Internal Medicine Gastroenterology
DX: R18.8 Other ascites (principal)
CPT/HCPCS: 49083; 96365; P9047

== ENCOUNTER 2025-01-16 12:00 | Inpatient (IN) | payer MEDICARE ==
[2025-01-16] VITALS (7 sets, daily range): BP systolic 101–179; BP diastolic 46–74; TEMP 96–98.2; O2SAT 92–97
[~2025-01-16] VITALS: Ht 144.8 cm; Wt 78.0 kg
[~2025-01-16 12:00] MED LIST changes: -ACETAMINOPHEN 325 MG TAB PO PRN
[2025-01-16] MEDS: LR 1,000 ML IV SCH (12:20)
[2025-01-16] MEDS ORDERED: MIDAZOLAM INJ 2 MG/2 ML VIAL As Ordered ONE (12:58)
[2025-01-16] MEDS ORDERED: LIDOCAINE 2% 100 MG/5 ML SDV (FOR ANES.) As Ordered ONE (12:59)
[2025-01-16] MEDS ORDERED: ONDANSETRON 4MG/2ML VIAL As Ordered ONE (13:00)
[2025-01-16] MEDS ORDERED: SUGAMMADEX SODIUM 500 MG/5 ML VIAL As Ordered ONE (13:08)
[2025-01-16] MEDS ORDERED: ROCURONIUM BROMIDE 50MG/5ML VIAL As Ordered ONE (13:08)
[2025-01-16] MEDS ORDERED: dexAMETHasone 4 MG/ML 1 ML VIAL As Ordered ONE (13:09)
[2025-01-16] MEDS ORDERED: KETOROLAC 30 MG/ML 1 ML VIAL As Ordered ONE (13:09)
[2025-01-16] MEDS ORDERED: NS (Normal Saline) 0.9% 1,000 ML IV SCH (16:05)
[2025-01-16] MEDS: ISOVUE-300 61% 100 ML VIAL IV SCH (16:07)
[2025-01-16] MEDS: LIDOCAINE 1% MDV 20 ML VIAL SC SCH (16:07)
[2025-01-16] MEDS: ONDANSETRON 4MG/2ML VIAL IV PRN (16:45)
[2025-01-16] MEDS: MORPHINE 4 MG/ML 1 ML VIAL IV PRN ×2 (16:47→21:20)
[2025-01-16 16:54] LABS: BASO # 0.0 10^3/uL (0.0-0.2); BASO % 0.5 % (0.0-1.0); EOS # 0.1 10^3/uL (0.0-0.5); EOS % 1.8 % (0.0-3.0); LYMPH # 1.4 10^3/uL (1.5-5.0); LYMPH % 18.8 % (24.0-44.0); MONO # 0.4 10^3/uL (0.0-0.8); MONO % 5.5 % (2.0-8.0); NEUTROPHILS # 5.4 10^3/uL (1.5-8.5); NEUTROPHILS % 73.1 % (36.0-66.0); PLATELET COUNT, AUTOMATED 196 10^3/uL (150-450)
[2025-01-16] MEDS ORDERED: GLUCOSE 4 GM CHEW PO PRN (17:00)
[2025-01-16] MEDS ORDERED: GLUCAGON INJ 1 MG VIAL SC PRN (17:00)
[2025-01-16] MEDS ORDERED: DEXTROSE 50% 50 ML SYRINGE IV PRN (17:00)
[2025-01-16] MEDS ORDERED: SPIRONOLACTONE 50 MG TAB PO SCH (17:00)
[2025-01-16] MEDS ORDERED: FUROSEMIDE 40 MG TAB PO SCH (17:00)
[2025-01-16 17:27] LABS: ALT/SGPT 74.0 U/L (7.0-40); AST/SGOT 116.0 U/L (<34); CALCIUM LEVEL 8.3 MG/DL (8.3-10.6); CARBON DIOXIDE LEVEL 18.0 MMOL/L (20-31); CHLORIDE LEVEL 110.0 MMOL/L (98-107); CREATININE FOR GFR 1.14 MG/DL (0.55-1.30); GLOMERULAR FILTRATION RATE 52.1 (>45); POTASSIUM SERUM 7.5 MMOL/L (3.5-5.1); SODIUM LEVEL 137.0 MMOL/L (136-145)
[2025-01-16 17:27] LABS: APPEARANCE, BODY FLUID CLOUDY (CLEAR); ASCITES FL COLOR PALE YELLOW (COLORLESS); SOURCE, BODY FLUID ASCITES
[2025-01-16] MEDS: INSULIN LISPRO (NovoLOG) PER UNIT SC SCH ×2 (17:30→21:56)
[2025-01-16 18:08] LABS: C REACTIVE PROTEIN QUANTITATIV 0.72 MG/DL (<1.0)
[2025-01-16] MEDS: PATIROMER SORBITEX CALCIUM 8.4GM POWDER PACKET PO ONE (18:25)
[2025-01-16] MEDS: CALCIUM GLUCONATE 1,000 MG in DEXTROSE 5% (D5W) MINI-BAG PLU 100 ML IV ONE ×2 (18:25→21:40)
[2025-01-16] MEDS ORDERED: HOME MED LIST COMPLETE! XX SCH (19:00)
[2025-01-16] MEDS ORDERED: METOPROLOL TART 25 MG TABLET PO ONE (19:05)
[2025-01-16] MEDS: DEXTROSE 50% 50 ML SYRINGE IV STA ×3 (19:19→23:40)
[2025-01-16] MEDS: HumuLIN R (REGULAR) INSULIN (NovoLIN R) **100 U/ML** PER UNIT IV STA ×3 (19:20→23:40)
[2025-01-16] MEDS: FUROSEMIDE 40 MG/4 ML VIAL IV ONE (19:21)
[2025-01-16] MEDS: SODIUM BICARBONATE 150 MEQ in D5W 1,000 ML IV SCH (19:21)
[2025-01-16] MEDS: ROSUVASTATIN 10 MG TAB PO SCH (21:00)
[2025-01-16] MEDS: METOPROLOL TART 25 MG TABLET PO SCH (21:00)
[2025-01-16] MEDS: PANTOPRAZOLE 40MG VIAL IV STA (21:19)
[2025-01-16 21:21] LABS: CALCIUM LEVEL 8.6 MG/DL (8.3-10.6); CARBON DIOXIDE LEVEL 15.0 MMOL/L (20-31); CHLORIDE LEVEL 107.0 MMOL/L (98-107); CREATININE FOR GFR 1.15 MG/DL (0.55-1.30); GLOMERULAR FILTRATION RATE 51.6 (>45); POTASSIUM SERUM 7.8 MMOL/L (3.5-5.1); SODIUM LEVEL 135.0 MMOL/L (136-145)
[2025-01-16 23:19] LABS: CALCIUM LEVEL 8.7 MG/DL (8.3-10.6); CARBON DIOXIDE LEVEL 17.0 MMOL/L (20-31); CHLORIDE LEVEL 104.0 MMOL/L (98-107); CREATININE FOR GFR 1.18 MG/DL (0.55-1.30); GLOMERULAR FILTRATION RATE 50.0 (>45); POTASSIUM SERUM 8.0 MMOL/L (3.5-5.1); SODIUM LEVEL 133.0 MMOL/L (136-145)
[2025-01-17] VITALS (34 sets, daily range): BP systolic 136–171; BP diastolic 63–87; TEMP 97.3–98.6; O2SAT 88–96
[2025-01-17] MEDS: ONDANSETRON 4MG/2ML VIAL IV PRN (00:27)
[2025-01-17 01:59] LABS: CALCIUM LEVEL 8.8 MG/DL (8.3-10.6); CARBON DIOXIDE LEVEL 18.0 MMOL/L (20-31); CHLORIDE LEVEL 105.0 MMOL/L (98-107); CREATININE FOR GFR 1.25 MG/DL (0.55-1.30); GLOMERULAR FILTRATION RATE 46.7 (>45); MAGNESIUM LEVEL 1.9 MG/DL (1.8-2.4); POTASSIUM SERUM 7.6 MMOL/L (3.5-5.1); SODIUM LEVEL 134.0 MMOL/L (136-145)
[2025-01-17] MEDS: FUROSEMIDE 40 MG/4 ML VIAL IV ONE (02:02)
[2025-01-17] MEDS: DEXTROSE 50% 50 ML SYRINGE IV STA ×2 (02:18→05:46)
[2025-01-17] MEDS: HumuLIN R (REGULAR) INSULIN (NovoLIN R) **100 U/ML** PER UNIT IV STA ×3 (02:19→09:17)
[2025-01-17 04:49] LABS: CALCIUM LEVEL 8.7 MG/DL (8.3-10.6); CARBON DIOXIDE LEVEL 20.0 MMOL/L (20-31); CHLORIDE LEVEL 106.0 MMOL/L (98-107); CREATININE FOR GFR 1.28 MG/DL (0.55-1.30); GLOMERULAR FILTRATION RATE 45.4 (>45); POTASSIUM SERUM 7.8 MMOL/L (3.5-5.1); SODIUM LEVEL 135.0 MMOL/L (136-145)
[2025-01-17] MEDS: MAG SULF 1GM/100ML (MAG RUN) 1 GM in IV 1 EA IV SCH (05:47)
[2025-01-17 06:19] LABS: CALCIUM LEVEL 8.9 MG/DL (8.3-10.6); CARBON DIOXIDE LEVEL 22.0 MMOL/L (20-31); CHLORIDE LEVEL 105.0 MMOL/L (98-107); CREATININE FOR GFR 1.31 MG/DL (0.55-1.30); GLOMERULAR FILTRATION RATE 44.1 (>45); POTASSIUM SERUM 7.6 MMOL/L (3.5-5.1); SODIUM LEVEL 136.0 MMOL/L (136-145)
[2025-01-17 07:15] LABS: BASO # 0.0 10^3/uL (0.0-0.2); BASO % 0.2 % (0.0-1.0); EOS # 0.0 10^3/uL (0.0-0.5); EOS % 0.1 % (0.0-3.0); LYMPH # 1.4 10^3/uL (1.5-5.0); LYMPH % 12.9 % (24.0-44.0); MONO # 0.8 10^3/uL (0.0-0.8); MONO % 7.7 % (2.0-8.0); NEUTROPHILS # 8.6 10^3/uL (1.5-8.5); NEUTROPHILS % 78.5 % (36.0-66.0); PLATELET COUNT, AUTOMATED 165 10^3/uL (150-450)
[2025-01-17 07:38] LABS: ALT/SGPT 324.0 U/L (7.0-40); AST/SGOT 518.0 U/L (<34); CALCIUM LEVEL 9.0 MG/DL (8.3-10.6); CARBON DIOXIDE LEVEL 22.0 MMOL/L (20-31); CHLORIDE LEVEL 104.0 MMOL/L (98-107); CREATININE FOR GFR 1.34 MG/DL (0.55-1.30); GLOMERULAR FILTRATION RATE 42.9 (>45); POTASSIUM SERUM 6.7 MMOL/L (3.5-5.1); SODIUM LEVEL 136.0 MMOL/L (136-145)
[2025-01-17] MEDS: PATIROMER SORBITEX CALCIUM 8.4GM POWDER PACKET PO ONE (07:53)
[2025-01-17] MEDS: FUROSEMIDE 40 MG TAB PO SCH (08:11)
[2025-01-17] MEDS: PANTOPRAZOLE 40MG VIAL IV SCH (08:12)
[2025-01-17] MEDS ORDERED: DEXTROSE 50% (25 GM/50 ML) VIAL IV STA (08:56)
[2025-01-17] MEDS: FUROSEMIDE 100 MG/10 ML VIAL IV SCH (09:15)
[2025-01-17] MEDS: NS 0.45% 1,000 ML IV SCH (09:16)
[2025-01-17] MEDS: CALCIUM GLUCONATE 1,000 MG in DEXTROSE 5% (D5W) MINI-BAG PLU 100 ML IV ONE (09:18)
[2025-01-17] MEDS: SODIUM BICARBONATE 8.4% INJ 50ML SYRINGE IV STA (09:18)
[2025-01-17] MEDS: DEXTROSE 50% 50 ML SYRINGE IV ONE (09:22)
[2025-01-17 09:49] LABS: CALCIUM LEVEL 9.1 MG/DL (8.3-10.6); CARBON DIOXIDE LEVEL 23.0 MMOL/L (20-31); CHLORIDE LEVEL 103.0 MMOL/L (98-107); CREATININE FOR GFR 1.32 MG/DL (0.55-1.30); GLOMERULAR FILTRATION RATE 43.7 (>45); POTASSIUM SERUM 6.9 MMOL/L (3.5-5.1); SODIUM LEVEL 135.0 MMOL/L (136-145)
[2025-01-17] MEDS: PATIROMER SORBITEX CALCIUM 8.4GM POWDER PACKET PO SCH (12:05)
[2025-01-17] MEDS: SODIUM CHLORIDE 0.9% INJ 10 ML SYR XX SCH (13:30)
[2025-01-17 14:01] LABS: KETONE, URINE AUTO RFX NEGATIVE (NEGATIVE); MUCUS, URINE RFX SMALL (NEGATIVE); NITRITE, URINE AUTO RFX NEGATIVE (NEGATIVE); RBC, URINE AUTO RFX 11 /HPF (0-3); SQUAM EPITHELIAL CELL UR AURFX 0 /HPF (0-6)
[2025-01-17 14:02] LABS: LEUKOCYTE ESTERASE UR AUTO RFX 3+ (NEGATIVE)
[2025-01-17 14:03] LABS: WBC, URINE AUTO RFX 142 /HPF (0-3)
[2025-01-17 14:04] LABS: CALCIUM LEVEL 9.6 MG/DL (8.3-10.6); CARBON DIOXIDE LEVEL 24.0 MMOL/L (20-31); CHLORIDE LEVEL 101.0 MMOL/L (98-107); CREATININE FOR GFR 1.35 MG/DL (0.55-1.30); GLOMERULAR FILTRATION RATE 42.5 (>45); POTASSIUM SERUM 6.5 MMOL/L (3.5-5.1); SODIUM LEVEL 134.0 MMOL/L (136-145)
[2025-01-17 15:04] LABS: CALCIUM LEVEL 9.6 MG/DL (8.3-10.6); CARBON DIOXIDE LEVEL 24.0 MMOL/L (20-31); CHLORIDE LEVEL 102.0 MMOL/L (98-107); CREATININE FOR GFR 1.35 MG/DL (0.55-1.30); GLOMERULAR FILTRATION RATE 42.5 (>45); POTASSIUM SERUM 6.3 MMOL/L (3.5-5.1); SODIUM LEVEL 134.0 MMOL/L (136-145)
[2025-01-17 20:31] LABS: CALCIUM LEVEL 9.3 MG/DL (8.3-10.6); CARBON DIOXIDE LEVEL 23.0 MMOL/L (20-31); CHLORIDE LEVEL 101.0 MMOL/L (98-107); CREATININE FOR GFR 1.45 MG/DL (0.55-1.30); GLOMERULAR FILTRATION RATE 39.1 (>45); POTASSIUM SERUM 5.6 MMOL/L (3.5-5.1); SODIUM LEVEL 134.0 MMOL/L (136-145)
[2025-01-18] VITALS (8 sets, daily range): BP systolic 141–180; BP diastolic 65–80; TEMP 97–99; O2SAT 93–96
[2025-01-18 01:40] LABS: CALCIUM LEVEL 9.1 MG/DL (8.3-10.6); CARBON DIOXIDE LEVEL 24.0 MMOL/L (20-31); CHLORIDE LEVEL 101.0 MMOL/L (98-107); CREATININE FOR GFR 1.47 MG/DL (0.55-1.30); GLOMERULAR FILTRATION RATE 38.4 (>45); POTASSIUM SERUM 5.7 MMOL/L (3.5-5.1); SODIUM LEVEL 133.0 MMOL/L (136-145)
[2025-01-18] MEDS: amLODIPine 5 MG TAB PO ONE ×2 (06:10→18:49)
[2025-01-18 07:40] LABS: BASO # 0.1 10^3/uL (0.0-0.2); BASO % 0.8 % (0.0-1.0); EOS # 0.1 10^3/uL (0.0-0.5); EOS % 1.5 % (0.0-3.0); LYMPH # 2.2 10^3/uL (1.5-5.0); LYMPH % 27.8 % (24.0-44.0); MONO # 0.7 10^3/uL (0.0-0.8); MONO % 9.1 % (2.0-8.0); NEUTROPHILS # 4.8 10^3/uL (1.5-8.5); NEUTROPHILS % 60.3 % (36.0-66.0); PLATELET COUNT, AUTOMATED 188 10^3/uL (150-450)
[2025-01-18 07:51] LABS: INR 1.08
[2025-01-18 08:06] LABS: ALT/SGPT 437.0 U/L (7.0-40); AST/SGOT 527.0 U/L (<34); CALCIUM LEVEL 9.0 MG/DL (8.3-10.6); CARBON DIOXIDE LEVEL 25.0 MMOL/L (20-31); CHLORIDE LEVEL 100.0 MMOL/L (98-107); CREATININE FOR GFR 1.4 MG/DL (0.55-1.30); GLOMERULAR FILTRATION RATE 40.7 (>45); POTASSIUM SERUM 5.2 MMOL/L (3.5-5.1); SODIUM LEVEL 134.0 MMOL/L (136-145)
[2025-01-18] MEDS: ONDANSETRON 4MG/2ML VIAL IV PRN (10:04)
[2025-01-18] MEDS: NS (Normal Saline) 0.9% 1,000 ML IV SCH (12:28)
[2025-01-18] MEDS: PATIROMER SORBITEX CALCIUM 8.4GM POWDER PACKET PO SCH (12:52)
[2025-01-18] MEDS: FUROSEMIDE injection 100 MG, VIAL 2 BAG 13MM ADAPTER 1 EACH in NS 100 ML IV SCH (12:54)
[2025-01-18] MEDS ORDERED: PILL CUTTER 1 EACH XX PRN (14:45)
[2025-01-18] MEDS: traMADol 50 MG TAB PO ONE (15:05)
[2025-01-18] MEDS: LACTULOSE 20 GM/30 ML SYRUP UDC PR ONE ×2 (18:49→23:27)
[2025-01-18] MEDS: cefTRIAXone SOD 2 GM in DEXTROSE 5% (D5W) ADV/MINI-BAG 50 ML IV SCH (18:49)
[2025-01-18] MEDS: LACTULOSE 20 GM/30 ML SYRUP UDC PO SCH (21:00)
[2025-01-19] VITALS (7 sets, daily range): BP systolic 137–159; BP diastolic 61–72; TEMP 97–98.5; O2SAT 93–96
[2025-01-19 00:42] LABS: ALT/SGPT 372.0 U/L (7.0-40); AST/SGOT 343.0 U/L (<34); CALCIUM LEVEL 9.4 MG/DL (8.3-10.6); CARBON DIOXIDE LEVEL 24.0 MMOL/L (20-31); CHLORIDE LEVEL 104.0 MMOL/L (98-107); CREATININE FOR GFR 1.32 MG/DL (0.55-1.30); GLOMERULAR FILTRATION RATE 43.7 (>45); POTASSIUM SERUM 4.2 MMOL/L (3.5-5.1); SODIUM LEVEL 138.0 MMOL/L (136-145)
[2025-01-19 06:07] LABS: BASO # 0.0 10^3/uL (0.0-0.2); BASO % 0.5 % (0.0-1.0); EOS # 0.1 10^3/uL (0.0-0.5); EOS % 1.3 % (0.0-3.0); LYMPH # 2.1 10^3/uL (1.5-5.0); LYMPH % 27.3 % (24.0-44.0); MONO # 0.7 10^3/uL (0.0-0.8); MONO % 8.9 % (2.0-8.0); NEUTROPHILS # 4.6 10^3/uL (1.5-8.5); NEUTROPHILS % 61.6 % (36.0-66.0); PLATELET COUNT, AUTOMATED 180 10^3/uL (150-450)
[2025-01-19 06:26] LABS: INR 1.05
[2025-01-19 06:34] LABS: ALT/SGPT 357.0 U/L (7.0-40); AST/SGOT 301.0 U/L (<34); CALCIUM LEVEL 9.2 MG/DL (8.3-10.6); CARBON DIOXIDE LEVEL 24.0 MMOL/L (20-31); CHLORIDE LEVEL 106.0 MMOL/L (98-107); CREATININE FOR GFR 1.3 MG/DL (0.55-1.30); GLOMERULAR FILTRATION RATE 44.5 (>45); POTASSIUM SERUM 4.0 MMOL/L (3.5-5.1); SODIUM LEVEL 141.0 MMOL/L (136-145)
[2025-01-19] MEDS: amLODIPine 5 MG TAB PO SCH (08:52)
[2025-01-20 03:57] VITALS: BP 163/73; TEMP 98.2; O2SAT 95
[2025-01-20 05:57] LABS: BASO # 0.1 10^3/uL (0.0-0.2); BASO % 0.8 % (0.0-1.0); EOS # 0.3 10^3/uL (0.0-0.5); EOS % 4.8 % (0.0-3.0); LYMPH # 2.1 10^3/uL (1.5-5.0); LYMPH % 29.0 % (24.0-44.0); MONO # 0.8 10^3/uL (0.0-0.8); MONO % 10.7 % (2.0-8.0); NEUTROPHILS # 3.8 10^3/uL (1.5-8.5); NEUTROPHILS % 54.3 % (36.0-66.0); PLATELET COUNT, AUTOMATED 144 10^3/uL (150-450)
[2025-01-20 06:13] LABS: INR 1.09
[2025-01-20 06:24] LABS: ALT/SGPT 281.0 U/L (7.0-40); AST/SGOT 221.0 U/L (<34); CALCIUM LEVEL 9.0 MG/DL (8.3-10.6); CARBON DIOXIDE LEVEL 26.0 MMOL/L (20-31); CHLORIDE LEVEL 106.0 MMOL/L (98-107); CREATININE FOR GFR 1.03 MG/DL (0.55-1.30); GLOMERULAR FILTRATION RATE 58.9 (>45); POTASSIUM SERUM 3.4 MMOL/L (3.5-5.1); SODIUM LEVEL 142.0 MMOL/L (136-145)
[2025-01-20 07:22] VITALS: BP 162/71; TEMP 97.9; O2SAT 96
[2025-01-20] MEDS: CIPROFLOXACIN 250 MG TAB PO SCH (08:06)
[2025-01-20] MEDS: POTASSIUM CHLORIDE 10MEQ SR TABLET PO ONE (08:07)
[2025-01-20 11:25] VITALS: BP 153/67; TEMP 97.7; O2SAT 97
[2025-01-20 12:00] VITALS: BP 153/67; TEMP 98.1; O2SAT 97
[2025-01-20 17:57] VITALS: BP 143/65; TEMP 98.5; O2SAT 95
[2025-01-20 19:35] VITALS: BP 161/70; TEMP 97.9; O2SAT 96
[2025-01-21 00:12] VITALS: BP 132/63; TEMP 98.4; O2SAT 95
[2025-01-21 04:01] VITALS: BP 116/54; TEMP 97.8; O2SAT 96
[2025-01-21 06:09] LABS: BASO # 0.1 10^3/uL (0.0-0.2); BASO % 1.2 % (0.0-1.0); EOS # 0.3 10^3/uL (0.0-0.5); EOS % 4.9 % (0.0-3.0); LYMPH # 2.2 10^3/uL (1.5-5.0); LYMPH % 31.8 % (24.0-44.0); MONO # 0.7 10^3/uL (0.0-0.8); MONO % 10.0 % (2.0-8.0); NEUTROPHILS # 3.5 10^3/uL (1.5-8.5); NEUTROPHILS % 51.7 % (36.0-66.0); PLATELET COUNT, AUTOMATED 119 10^3/uL (150-450)
[2025-01-21 06:24] LABS: INR 1.03
[2025-01-21 06:39] LABS: ALT/SGPT 223.0 U/L (7.0-40); AST/SGOT 156.0 U/L (<34); CALCIUM LEVEL 8.4 MG/DL (8.3-10.6); CARBON DIOXIDE LEVEL 25.0 MMOL/L (20-31); CHLORIDE LEVEL 107.0 MMOL/L (98-107); CREATININE FOR GFR 1.01 MG/DL (0.55-1.30); GLOMERULAR FILTRATION RATE 60.3 (>45); POTASSIUM SERUM 3.6 MMOL/L (3.5-5.1); SODIUM LEVEL 139.0 MMOL/L (136-145)
[2025-01-21 07:48] VITALS: BP 154/67; TEMP 97.4; O2SAT 96
[2025-01-21] MEDS: LACTULOSE 20 GM/30 ML SYRUP UDC PO SCH (08:15)
[2025-01-21 12:00] VITALS: BP 129/61; TEMP 97.6; O2SAT 97
[2025-01-21 15:46] VITALS: BP 140/65; TEMP 97.5; O2SAT 99
[2025-01-21 20:25] VITALS: BP 151/66; TEMP 97.1; O2SAT 97
[2025-01-22] VITALS (7 sets, daily range): BP systolic 121–164; BP diastolic 60–72; TEMP 96.9–97.7; O2SAT 96–99
[2025-01-22 06:52] LABS: BASO # 0.1 10^3/uL (0.0-0.2); BASO % 1.0 % (0.0-1.0); EOS # 0.4 10^3/uL (0.0-0.5); EOS % 5.1 % (0.0-3.0); LYMPH # 2.2 10^3/uL (1.5-5.0); LYMPH % 30.8 % (24.0-44.0); MONO # 0.6 10^3/uL (0.0-0.8); MONO % 8.7 % (2.0-8.0); NEUTROPHILS # 3.9 10^3/uL (1.5-8.5); NEUTROPHILS % 54.0 % (36.0-66.0); PLATELET COUNT, AUTOMATED 105 10^3/uL (150-450)
[2025-01-22 07:11] LABS: CALCIUM LEVEL 8.0 MG/DL (8.3-10.6); CARBON DIOXIDE LEVEL 25.0 MMOL/L (20-31); CHLORIDE LEVEL 104.0 MMOL/L (98-107); CREATININE FOR GFR 0.86 MG/DL (0.55-1.30); GLOMERULAR FILTRATION RATE 73.1 (>45); POTASSIUM SERUM 3.6 MMOL/L (3.5-5.1); SODIUM LEVEL 136.0 MMOL/L (136-145)
[2025-01-23 03:17] VITALS: BP 125/58; TEMP 96.8; O2SAT 96
[2025-01-23 05:53] LABS: BASO # 0.1 10^3/uL (0.0-0.2); BASO % 0.8 % (0.0-1.0); EOS # 0.4 10^3/uL (0.0-0.5); EOS % 4.9 % (0.0-3.0); LYMPH # 2.4 10^3/uL (1.5-5.0); LYMPH % 30.7 % (24.0-44.0); MONO # 0.6 10^3/uL (0.0-0.8); MONO % 8.2 % (2.0-8.0); NEUTROPHILS # 4.2 10^3/uL (1.5-8.5); NEUTROPHILS % 55.0 % (36.0-66.0); PLATELET COUNT, AUTOMATED 125 10^3/uL (150-450)
[2025-01-23 06:02] LABS: CALCIUM LEVEL 7.8 MG/DL (8.3-10.6); CARBON DIOXIDE LEVEL 24.0 MMOL/L (20-31); CHLORIDE LEVEL 104.0 MMOL/L (98-107); CREATININE FOR GFR 1.12 MG/DL (0.55-1.30); GLOMERULAR FILTRATION RATE 53.2 (>45); POTASSIUM SERUM 4.2 MMOL/L (3.5-5.1); SODIUM LEVEL 134.0 MMOL/L (136-145)
[2025-01-23 07:43] VITALS: BP 113/53; TEMP 98; O2SAT 97
[2025-01-23 12:04] VITALS: BP 108/51; TEMP 97.2; O2SAT 97
[2025-01-23 15:31] VITALS: BP 115/54; TEMP 97; O2SAT 98
[2025-01-23 19:41] VITALS: BP 130/58; TEMP 98.7; O2SAT 98
[2025-01-23 23:44] VITALS: BP 119/52; TEMP 98.1; O2SAT 97
[2025-01-24 03:40] VITALS: BP 131/60; TEMP 98.9; O2SAT 97
[2025-01-24 06:01] LABS: PLATELET COUNT, AUTOMATED 129 10^3/uL (150-450)
[2025-01-24 06:17] LABS: INR 1.01
[2025-01-24 06:28] LABS: ALT/SGPT 146.0 U/L (7.0-40); AST/SGOT 123.0 U/L (<34); CALCIUM LEVEL 8.4 MG/DL (8.3-10.6); CARBON DIOXIDE LEVEL 21.0 MMOL/L (20-31); CHLORIDE LEVEL 103.0 MMOL/L (98-107); CREATININE FOR GFR 1.1 MG/DL (0.55-1.30); GLOMERULAR FILTRATION RATE 54.4 (>45); POTASSIUM SERUM 4.0 MMOL/L (3.5-5.1); SODIUM LEVEL 132.0 MMOL/L (136-145)
[2025-01-24 07:24] VITALS: BP 122/58; TEMP 97.7; O2SAT 96
[2025-01-24 11:40] VITALS: BP 146/67; TEMP 97.2; O2SAT 97
[2025-01-24 16:39] VITALS: BP 134/59; TEMP 97.5; O2SAT 95
[2025-01-24 19:58] VITALS: BP 134/57; TEMP 98.8; O2SAT 98
[2025-01-24 23:30] VITALS: BP 127/58; TEMP 97.5; O2SAT 95
[2025-01-25 03:04] VITALS: BP 138/63; TEMP 97.5; O2SAT 97
[2025-01-25 07:40] VITALS: BP 118/53; TEMP 97.3; O2SAT 96
[2025-01-25] MEDS ORDERED: LACT20EL PO (07:42)
[2025-01-25] MEDS ORDERED: XIFA550T PO (07:42)
[2025-01-25 08:15] VITALS: BP 118/53
== END 2025-01-25 10:00 | disposition home health service (06) | DRG 981 ==
LOC: M IRPRO 12:00 → M PCU 17:46
PROVIDERS: ADMIT General Practice; ATTEND Student in an Organized Health Care Education/Training Program
PROC: 06183J4 Bypass Portal Vein to Hepatic Vein with Synthetic Substitute, Percutaneous Approach (ICD-10-PCS; principal; 2025-01-16 13:00)
PROC: 0F9430Z Drainage of Gallbladder with Drainage Device, Percutaneous Approach (ICD-10-PCS; 2025-01-16 13:00)
DX: K91.71 Accidental puncture and laceration of a digestive system organ or structure during a digestive system procedure (principal); G93.41 Metabolic encephalopathy; K76.6 Portal hypertension; R18.8 Other ascites; E87.20 Acidosis, unspecified; I47.20 Ventricular tachycardia, unspecified; N17.9 Acute kidney failure, unspecified; R78.81 Bacteremia; N39.0 Urinary tract infection, site not specified; K83.8 Other specified diseases of biliary tract; E11.43 Type 2 diabetes mellitus with diabetic autonomic (poly)neuropathy; I12.9 Hypertensive chronic kidney disease with stage 1 through stage 4 chronic kidney disease, or unspecified chronic kidney disease; E11.51 Type 2 diabetes mellitus with diabetic peripheral angiopathy without gangrene; K74.60 Unspecified cirrhosis of liver; I25.10 Atherosclerotic heart disease of native coronary artery without angina pectoris; E78.5 Hyperlipidemia, unspecified; E87.5 Hyperkalemia; R16.1 Splenomegaly, not elsewhere classified; Z95.1 Presence of aortocoronary bypass graft; D47.2 Monoclonal gammopathy; N18.9 Chronic kidney disease, unspecified; R10.9 Unspecified abdominal pain; E11.22 Type 2 diabetes mellitus with diabetic chronic kidney disease; G89.29 Other chronic pain; R58 Hemorrhage, not elsewhere classified; K76.82 Hepatic encephalopathy; R26.89 Other abnormalities of gait and mobility; E66.9 Obesity, unspecified; Z79.899 Other long term (current) drug therapy

== ENCOUNTER 2025-01-30 11:43 | Inpatient (IN) | payer MEDICARE ==
[~2025-01-30] VITALS: Ht 149.9 cm; Wt 73.0 kg
[~2025-01-30 11:43] MED LIST changes: +LACT20EL PO; +XIFA550T PO
[2025-01-30] MEDS: ONDANSETRON 4MG/2ML VIAL IV ONE (12:06)
[2025-01-30] MEDS: MORPHINE 4 MG/ML 1 ML VIAL IV PRN (12:21)
[2025-01-30] MEDS ORDERED: ISOVUE-370 76% 100 ML VIAL As Ordered ONE (12:29)
[2025-01-30 12:33] LABS: BASO # 0.1 10^3/uL (0.0-0.2); BASO % 0.9 % (0.0-1.0); EOS # 0.2 10^3/uL (0.0-0.5); EOS % 3.0 % (0.0-3.0); LYMPH # 1.4 10^3/uL (1.5-5.0); LYMPH % 16.6 % (24.0-44.0); MONO # 0.2 10^3/uL (0.0-0.8); MONO % 2.8 % (2.0-8.0); NEUTROPHILS # 6.2 10^3/uL (1.5-8.5); NEUTROPHILS % 76.3 % (36.0-66.0); PLATELET COUNT, AUTOMATED 205 10^3/uL (150-450)
[2025-01-30 12:59] LABS: C REACTIVE PROTEIN QUANTITATIV 0.74 MG/DL (<1.0)
[2025-01-30 13:56] LABS: ALT/SGPT 111.0 U/L (7.0-40); AST/SGOT 153.0 U/L (<34); CALCIUM LEVEL 8.0 MG/DL (8.3-10.6); CARBON DIOXIDE LEVEL 19.0 MMOL/L (20-31); CHLORIDE LEVEL 106.0 MMOL/L (98-107); CREATININE FOR GFR 1.11 MG/DL (0.55-1.30); GLOMERULAR FILTRATION RATE 53.8 (>45); POTASSIUM SERUM 5.2 MMOL/L (3.5-5.1); SODIUM LEVEL 135.0 MMOL/L (136-145)
[2025-01-30] MEDS ORDERED: XIFA550T PO (14:09)
[2025-01-30] MEDS ORDERED: HOME MED LIST COMPLETE! XX SCH (14:15)
[2025-01-30] MEDS: NS (Normal Saline) 0.9% 2,320 ML in IV 1 EA IV STA (14:18)
[2025-01-30] MEDS: PIPERACILLIN/TAZOBACTAM SOD 4.5 GM in DEXTROSE 5% (D5W) ADV/MINI-BAG 50 ML IV ONE (14:18)
[2025-01-30 15:02] LABS: INR 1.11
[2025-01-30] MEDS: VANCOMYCIN HCL 1,000 MG, VIAL MATE ADAPTER 1 EACH in NS 250 ML IV ONE (15:33)
[2025-01-30] MEDS ORDERED: MORPHINE 4 MG/ML 1 ML VIAL IV PRN (17:45)
[2025-01-30 18:40] VITALS: BP 138/61; TEMP 100.8; O2SAT 94
[2025-01-30 20:00] VITALS: BP 103/49; TEMP 97.3; O2SAT 96
[2025-01-30 20:50] LABS: APPEARANCE, BODY FLUID CLOUDY (CLEAR); ASCITES FL COLOR YELLOW (COLORLESS); SOURCE, BODY FLUID ASCITES
[2025-01-30] MEDS: MEROPENEM 1 GM in IV 1 EA IV SCH (20:59)
[2025-01-30] MEDS: HEPARIN SOD 5000 UNITS/ML 1 ML VIAL/SYRINGE SC SCH (21:00)
[2025-01-30] MEDS: VANCOMYCIN HCL 1,000 MG, VIAL MATE ADAPTER 1 EACH in NS 250 ML IV SCH (22:52)
[2025-01-31] VITALS (21 sets, daily range): BP systolic 113–150; BP diastolic 51–71; TEMP 97.1–98.5; O2SAT 96–100
[2025-01-31 05:14] LABS: BASO # 0.0 10^3/uL (0.0-0.2); BASO % 0.3 % (0.0-1.0); EOS # 0.0 10^3/uL (0.0-0.5); EOS % 0.2 % (0.0-3.0); LYMPH # 2.2 10^3/uL (1.5-5.0); LYMPH % 20.4 % (24.0-44.0); MONO # 0.6 10^3/uL (0.0-0.8); MONO % 5.5 % (2.0-8.0); NEUTROPHILS # 7.9 10^3/uL (1.5-8.5); NEUTROPHILS % 73.3 % (36.0-66.0); PLATELET COUNT, AUTOMATED 166 10^3/uL (150-450)
[2025-01-31 05:37] LABS: INR 1.31
[2025-01-31 05:43] LABS: ALT/SGPT 75.0 U/L (7.0-40); AST/SGOT 93.0 U/L (<34); CALCIUM LEVEL 7.3 MG/DL (8.3-10.6); CARBON DIOXIDE LEVEL 18.0 MMOL/L (20-31); CHLORIDE LEVEL 110.0 MMOL/L (98-107); CREATININE FOR GFR 1.41 MG/DL (0.55-1.30); GLOMERULAR FILTRATION RATE 40.4 (>45); MAGNESIUM LEVEL 1.9 MG/DL (1.8-2.4); POTASSIUM SERUM 5.9 MMOL/L (3.5-5.1); SODIUM LEVEL 136.0 MMOL/L (136-145)
[2025-01-31] MEDS: ISOVUE-300 61% 100 ML VIAL IV SCH (11:12)
[2025-01-31] MEDS: LIDOCAINE 1% MDV 20 ML VIAL SC SCH (11:12)
[2025-01-31] MEDS ORDERED: ONDANSETRON 4MG/2ML VIAL IV PRN (11:15)
[2025-01-31 12:38] LABS: KETONE, URINE AUTO RFX TRACE mg/dL (NEGATIVE); LEUKOCYTE ESTERASE UR AUTO RFX 3+ (NEGATIVE); NITRITE, URINE AUTO RFX NEGATIVE (NEGATIVE); RBC, URINE AUTO RFX 51 /HPF (0-3); SQUAM EPITHELIAL CELL UR AURFX 2 /HPF (0-6); WBC, URINE AUTO RFX TNTC /HPF (0-3)
[2025-01-31] MEDS: FUROSEMIDE 100 MG/10 ML VIAL IV ONE (13:04)
[2025-01-31] MEDS: VANCOMYCIN HCL 750 MG, VIAL MATE ADAPTER 1 EACH in NS 250 ML IV SCH (13:04)
[2025-02-01] VITALS (7 sets, daily range): BP systolic 143–154; BP diastolic 62–68; TEMP 97.4–100.6; O2SAT 96–98
[2025-02-01 04:45] LABS: BASO # 0.0 10^3/uL (0.0-0.2); BASO % 0.5 % (0.0-1.0); EOS # 0.2 10^3/uL (0.0-0.5); EOS % 2.0 % (0.0-3.0); LYMPH # 2.1 10^3/uL (1.5-5.0); LYMPH % 27.2 % (24.0-44.0); MONO # 0.7 10^3/uL (0.0-0.8); MONO % 8.9 % (2.0-8.0); NEUTROPHILS # 4.6 10^3/uL (1.5-8.5); NEUTROPHILS % 61.1 % (36.0-66.0); PLATELET COUNT, AUTOMATED 170 10^3/uL (150-450)
[2025-02-01 05:10] LABS: ALT/SGPT 59.0 U/L (7.0-40); AST/SGOT 65.0 U/L (<34); CALCIUM LEVEL 7.4 MG/DL (8.3-10.6); CARBON DIOXIDE LEVEL 21.0 MMOL/L (20-31); CHLORIDE LEVEL 109.0 MMOL/L (98-107); CREATININE FOR GFR 1.26 MG/DL (0.55-1.30); GLOMERULAR FILTRATION RATE 46.2 (>45); INR 1.16; MAGNESIUM LEVEL 2.0 MG/DL (1.8-2.4); POTASSIUM SERUM 4.7 MMOL/L (3.5-5.1); SODIUM LEVEL 137.0 MMOL/L (136-145)
[2025-02-01] MEDS: FUROSEMIDE 100 MG/10 ML VIAL IV ONE (17:03)
[2025-02-02] VITALS: BP 153/69; TEMP 97.9; O2SAT 97
[2025-02-02 04:00] VITALS: BP 160/71; TEMP 98.5; O2SAT 95
[2025-02-02 05:06] LABS: BASO # 0.1 10^3/uL (0.0-0.2); BASO % 0.7 % (0.0-1.0); EOS # 0.2 10^3/uL (0.0-0.5); EOS % 3.3 % (0.0-3.0); LYMPH # 2.0 10^3/uL (1.5-5.0); LYMPH % 27.2 % (24.0-44.0); MONO # 0.5 10^3/uL (0.0-0.8); MONO % 6.1 % (2.0-8.0); NEUTROPHILS # 4.6 10^3/uL (1.5-8.5); NEUTROPHILS % 62.4 % (36.0-66.0); PLATELET COUNT, AUTOMATED 183 10^3/uL (150-450)
[2025-02-02 05:27] LABS: INR 0.97
[2025-02-02 05:30] LABS: ALT/SGPT 59.0 U/L (7.0-40); AST/SGOT 74.0 U/L (<34); CALCIUM LEVEL 7.7 MG/DL (8.3-10.6); CARBON DIOXIDE LEVEL 21.0 MMOL/L (20-31); CHLORIDE LEVEL 108.0 MMOL/L (98-107); CREATININE FOR GFR 0.96 MG/DL (0.55-1.30); GLOMERULAR FILTRATION RATE 64.1 (>45); MAGNESIUM LEVEL 2.1 MG/DL (1.8-2.4); POTASSIUM SERUM 4.5 MMOL/L (3.5-5.1); SODIUM LEVEL 138.0 MMOL/L (136-145)
[2025-02-02] MEDS: FUROSEMIDE 100 MG/10 ML VIAL IV ONE (08:11)
[2025-02-02] MEDS: METOPROLOL TART 25 MG TABLET PO SCH (08:12)
[2025-02-02 08:13] VITALS: BP 160/69; TEMP 97.4; O2SAT 96
[2025-02-02 12:00] VITALS: BP 148/70; TEMP 97.1; O2SAT 97
[2025-02-02] MEDS: PIPERACILLIN/TAZOBACTAM SOD 3.375 GM in DEXTROSE 5% (D5W) ADV/MINI-BAG 50 ML IV SCH (14:04)
[2025-02-02 16:00] VITALS: BP 149/67; TEMP 100.1; O2SAT 96
[2025-02-02] MEDS: ACETAMINOPHEN 325 MG TAB PO PRN (16:57)
[2025-02-02 17:47] VITALS: BP 161/69; TEMP 98.8; O2SAT 98
[2025-02-03 07:08] LABS: BASO # 0.1 10^3/uL (0.0-0.2); BASO % 0.8 % (0.0-1.0); EOS # 0.2 10^3/uL (0.0-0.5); EOS % 3.4 % (0.0-3.0); LYMPH # 1.9 10^3/uL (1.5-5.0); LYMPH % 30.0 % (24.0-44.0); MONO # 0.5 10^3/uL (0.0-0.8); MONO % 7.4 % (2.0-8.0); NEUTROPHILS # 3.6 10^3/uL (1.5-8.5); NEUTROPHILS % 58.1 % (36.0-66.0); PLATELET COUNT, AUTOMATED 186 10^3/uL (150-450)
[2025-02-03 07:30] LABS: ALT/SGPT 55.0 U/L (7.0-40); AST/SGOT 75.0 U/L (<34); CALCIUM LEVEL 7.7 MG/DL (8.3-10.6); CARBON DIOXIDE LEVEL 21.0 MMOL/L (20-31); CHLORIDE LEVEL 110.0 MMOL/L (98-107); CREATININE FOR GFR 0.96 MG/DL (0.55-1.30); GLOMERULAR FILTRATION RATE 64.1 (>45); MAGNESIUM LEVEL 2.1 MG/DL (1.8-2.4); POTASSIUM SERUM 4.5 MMOL/L (3.5-5.1); SODIUM LEVEL 139.0 MMOL/L (136-145)
[2025-02-03 07:38] LABS: INR 1.06
[2025-02-03] MEDS: amLODIPine 5 MG TAB PO SCH (10:13)
[2025-02-03 10:44] VITALS: BP 152/60; TEMP 96.3; O2SAT 95
[2025-02-03 12:00] VITALS: BP 137/65; TEMP 98.1; O2SAT 98
[2025-02-03] MEDS: FUROSEMIDE 100 MG/10 ML VIAL IV SCH (12:25)
[2025-02-03 20:15] VITALS: BP 137/60; TEMP 99.3; O2SAT 96
[2025-02-04] VITALS (9 sets, daily range): BP systolic 110–148; BP diastolic 54–65; TEMP 98.3–98.6; O2SAT 95–98
[2025-02-04 06:23] LABS: BASO # 0.1 10^3/uL (0.0-0.2); BASO % 0.8 % (0.0-1.0); EOS # 0.3 10^3/uL (0.0-0.5); EOS % 2.9 % (0.0-3.0); LYMPH # 1.7 10^3/uL (1.5-5.0); LYMPH % 19.5 % (24.0-44.0); MONO # 0.6 10^3/uL (0.0-0.8); MONO % 6.4 % (2.0-8.0); NEUTROPHILS # 6.1 10^3/uL (1.5-8.5); NEUTROPHILS % 70.1 % (36.0-66.0); PLATELET COUNT, AUTOMATED 181 10^3/uL (150-450)
[2025-02-04 06:45] LABS: INR 1.03
[2025-02-04 06:56] LABS: ALT/SGPT 54.0 U/L (7.0-40); AST/SGOT 70.0 U/L (<34); CALCIUM LEVEL 7.3 MG/DL (8.3-10.6); CARBON DIOXIDE LEVEL 21.0 MMOL/L (20-31); CHLORIDE LEVEL 107.0 MMOL/L (98-107); CREATININE FOR GFR 0.98 MG/DL (0.55-1.30); GLOMERULAR FILTRATION RATE 62.5 (>45); MAGNESIUM LEVEL 1.8 MG/DL (1.8-2.4); POTASSIUM SERUM 4.3 MMOL/L (3.5-5.1); SODIUM LEVEL 137.0 MMOL/L (136-145)
[2025-02-05] VITALS (14 sets, daily range): BP systolic 114–139; BP diastolic 55–60; TEMP 97.7–99.2; O2SAT 94–97
[2025-02-05 06:03] LABS: BASO # 0.1 10^3/uL (0.0-0.2); BASO % 0.9 % (0.0-1.0); EOS # 0.3 10^3/uL (0.0-0.5); EOS % 3.9 % (0.0-3.0); LYMPH # 2.5 10^3/uL (1.5-5.0); LYMPH % 31.9 % (24.0-44.0); MONO # 0.5 10^3/uL (0.0-0.8); MONO % 6.8 % (2.0-8.0); NEUTROPHILS # 4.5 10^3/uL (1.5-8.5); NEUTROPHILS % 56.2 % (36.0-66.0); PLATELET COUNT, AUTOMATED 170 10^3/uL (150-450)
[2025-02-05 06:21] LABS: INR 1.07
[2025-02-05 06:24] LABS: ALT/SGPT 42.0 U/L (7.0-40); AST/SGOT 58.0 U/L (<34); CALCIUM LEVEL 7.7 MG/DL (8.3-10.6); CARBON DIOXIDE LEVEL 20.0 MMOL/L (20-31); CHLORIDE LEVEL 108.0 MMOL/L (98-107); CREATININE FOR GFR 1.04 MG/DL (0.55-1.30); GLOMERULAR FILTRATION RATE 58.2 (>45); MAGNESIUM LEVEL 1.8 MG/DL (1.8-2.4); POTASSIUM SERUM 4.3 MMOL/L (3.5-5.1); SODIUM LEVEL 137.0 MMOL/L (136-145)
[2025-02-06] VITALS (11 sets, daily range): BP systolic 105–145; BP diastolic 47–65; TEMP 97.2–99.4; O2SAT 92–98
[2025-02-06 07:28] LABS: BASO # 0.1 10^3/uL (0.0-0.2); BASO % 0.9 % (0.0-1.0); EOS # 0.2 10^3/uL (0.0-0.5); EOS % 3.1 % (0.0-3.0); LYMPH # 2.5 10^3/uL (1.5-5.0); LYMPH % 31.4 % (24.0-44.0); MONO # 0.5 10^3/uL (0.0-0.8); MONO % 6.3 % (2.0-8.0); NEUTROPHILS # 4.5 10^3/uL (1.5-8.5); NEUTROPHILS % 57.9 % (36.0-66.0); PLATELET COUNT, AUTOMATED 138 10^3/uL (150-450)
[2025-02-06 07:51] LABS: ALT/SGPT 31.0 U/L (7.0-40); AST/SGOT 45.0 U/L (<34); CALCIUM LEVEL 7.3 MG/DL (8.3-10.6); CARBON DIOXIDE LEVEL 21.0 MMOL/L (20-31); CHLORIDE LEVEL 105.0 MMOL/L (98-107); CREATININE FOR GFR 1.15 MG/DL (0.55-1.30); GLOMERULAR FILTRATION RATE 51.6 (>45); MAGNESIUM LEVEL 1.7 MG/DL (1.8-2.4); POTASSIUM SERUM 4.0 MMOL/L (3.5-5.1); SODIUM LEVEL 134.0 MMOL/L (136-145)
[2025-02-06 07:57] LABS: INR 1.12
[2025-02-06] MEDS: FUROSEMIDE injection 100 MG, VIAL 2 BAG 13MM ADAPTER 1 EACH in NS 100 ML IV SCH (12:57)
[2025-02-06] MEDS ORDERED: SODIUM CHLORIDE 0.9% INJ 10 ML SYR IV PRN (17:25)
[2025-02-06] MEDS: SODIUM CHLORIDE 0.9% INJ 10 ML SYR IV SCH (18:22)
[2025-02-07 05:01] VITALS: BP 128/60; TEMP 98.6; O2SAT 96
[2025-02-07 08:14] VITALS: BP 131/60
[2025-02-07 12:00] VITALS: BP 115/51; TEMP 98.5; O2SAT 95
[2025-02-07 16:19] VITALS: BP 124/57; TEMP 98.7; O2SAT 97
[2025-02-07 17:44] LABS: VENOUS BASE EXCESS -4.3 (-2.0-2.0); VENOUS HCO3 19.5 MMOL/L (23.0-27.0); VENOUS O2 SATURATION 99.1 % (60.0-80.0); VENOUS PARTIAL PRESSURE CO2 31.9 mmHg (38.0-50.0); VENOUS PARTIAL PRESSURE O2 225.2 mmHg (30.0-50.0); VENOUS PH 7.405 UNITS (7.330-7.430); VENOUS STANDARD HCO3 21.0 MMOL/L; VENOUS TOTAL CO2 20.5 MMOL/L (24.0-28.0)
[2025-02-07 20:25] VITALS: BP 130/61; TEMP 98.6; O2SAT 93
[2025-02-08 04:12] VITALS: BP 98/40; TEMP 98; O2SAT 96
[2025-02-08 04:28] VITALS: BP 105/50
[2025-02-08 07:18] LABS: BASO # 0.0 10^3/uL (0.0-0.2); BASO % 0.6 % (0.0-1.0); EOS # 0.3 10^3/uL (0.0-0.5); EOS % 4.7 % (0.0-3.0); LYMPH # 1.7 10^3/uL (1.5-5.0); LYMPH % 25.5 % (24.0-44.0); MONO # 0.5 10^3/uL (0.0-0.8); MONO % 8.0 % (2.0-8.0); NEUTROPHILS # 4.0 10^3/uL (1.5-8.5); NEUTROPHILS % 60.7 % (36.0-66.0); PLATELET COUNT, AUTOMATED 206 10^3/uL (150-450)
[2025-02-08 07:41] LABS: ALT/SGPT 24.0 U/L (7.0-40); AST/SGOT 36.0 U/L (<34); C REACTIVE PROTEIN QUANTITATIV 4.0 MG/DL (<1.0); CALCIUM LEVEL 7.5 MG/DL (8.3-10.6); CARBON DIOXIDE LEVEL 20.0 MMOL/L (20-31); CHLORIDE LEVEL 106.0 MMOL/L (98-107); CREATININE FOR GFR 1.1 MG/DL (0.55-1.30); GLOMERULAR FILTRATION RATE 54.4 (>45); POTASSIUM SERUM 3.8 MMOL/L (3.5-5.1); SODIUM LEVEL 136.0 MMOL/L (136-145)
[2025-02-08] MEDS: SPIRONOLACTONE 50 MG TAB PO SCH (11:46)
[2025-02-08 12:15] VITALS: BP 147/56; TEMP 98.3; O2SAT 94
[2025-02-08 21:11] VITALS: BP 142/64; TEMP 98.4; O2SAT 96
[2025-02-09 03:25] VITALS: BP 115/54; TEMP 98.2; O2SAT 95
[2025-02-09 08:36] LABS: PLATELET COUNT, AUTOMATED 219 10^3/uL (150-450)
[2025-02-09 09:04] LABS: CALCIUM LEVEL 7.9 MG/DL (8.3-10.6); CARBON DIOXIDE LEVEL 22.0 MMOL/L (20-31); CHLORIDE LEVEL 108.0 MMOL/L (98-107); CREATININE FOR GFR 1.13 MG/DL (0.55-1.30); GLOMERULAR FILTRATION RATE 52.7 (>45); POTASSIUM SERUM 3.9 MMOL/L (3.5-5.1); SODIUM LEVEL 139.0 MMOL/L (136-145)
[2025-02-09 20:31] VITALS: BP 124/77; TEMP 98.3; O2SAT 98
[2025-02-09] MEDS: AUGMENTIN 875 MG TAB PO SCH (20:36)
[2025-02-10 03:35] VITALS: BP 114/52; TEMP 98.2; O2SAT 96
[2025-02-10 06:33] LABS: PLATELET COUNT, AUTOMATED 236 10^3/uL (150-450)
[2025-02-10 06:54] LABS: CALCIUM LEVEL 8.0 MG/DL (8.3-10.6); CARBON DIOXIDE LEVEL 24.0 MMOL/L (20-31); CHLORIDE LEVEL 107.0 MMOL/L (98-107); CREATININE FOR GFR 1.05 MG/DL (0.55-1.30); GLOMERULAR FILTRATION RATE 57.5 (>45); POTASSIUM SERUM 3.7 MMOL/L (3.5-5.1); SODIUM LEVEL 139.0 MMOL/L (136-145)
[2025-02-10] MEDS ORDERED: PILL CUTTER 1 EACH XX ONE (10:08)
[2025-02-10 10:17] VITALS: BP 119/56; TEMP 98.2; O2SAT 96
[2025-02-10 12:33] VITALS: BP 132/58; TEMP 98; O2SAT 96
[2025-02-10] MEDS: POTASSIUM CHLORIDE 10MEQ SR TABLET PO ONE (16:51)
[2025-02-10 19:59] VITALS: BP 122/58; TEMP 98.3; O2SAT 97
[2025-02-10] MEDS: SPIRONOLACTONE 50 MG TAB PO SCH (20:13)
[2025-02-11 04:37] VITALS: BP 126/53; TEMP 98.7; O2SAT 96
[2025-02-11 06:12] LABS: PLATELET COUNT, AUTOMATED 257 10^3/uL (150-450)
[2025-02-11 06:39] LABS: CALCIUM LEVEL 8.1 MG/DL (8.3-10.6); CARBON DIOXIDE LEVEL 23.0 MMOL/L (20-31); CHLORIDE LEVEL 108.0 MMOL/L (98-107); CREATININE FOR GFR 0.91 MG/DL (0.55-1.30); GLOMERULAR FILTRATION RATE 68.3 (>45); POTASSIUM SERUM 4.3 MMOL/L (3.5-5.1); SODIUM LEVEL 140.0 MMOL/L (136-145)
[2025-02-11 12:00] VITALS: BP 124/55; TEMP 98.3; O2SAT 94
[2025-02-11] MEDS ORDERED: PILL CUTTER 1 EACH XX PRN (12:10)
[2025-02-11] MEDS: metOLazone 2.5 MG TAB PO ONE (16:23)
[2025-02-11 20:19] VITALS: BP 122/56; TEMP 98.7; O2SAT 95
[2025-02-11] MEDS: metOLazone 2.5 MG TAB PO SCH (20:30)
[2025-02-12 04:08] VITALS: BP 116/54; TEMP 98.1; O2SAT 95
[2025-02-12 06:07] LABS: PLATELET COUNT, AUTOMATED 241 10^3/uL (150-450)
[2025-02-12 06:27] LABS: CALCIUM LEVEL 8.5 MG/DL (8.3-10.6); CARBON DIOXIDE LEVEL 24.0 MMOL/L (20-31); CHLORIDE LEVEL 108.0 MMOL/L (98-107); CREATININE FOR GFR 0.94 MG/DL (0.55-1.30); GLOMERULAR FILTRATION RATE 65.7 (>45); MAGNESIUM LEVEL 1.5 MG/DL (1.8-2.4); POTASSIUM SERUM 4.0 MMOL/L (3.5-5.1); SODIUM LEVEL 141.0 MMOL/L (136-145)
[2025-02-12] MEDS: MAG SULF 1GM/100ML (MAG RUN) 1 GM in IV 1 EA IV SCH (08:12)
[2025-02-12 12:00] VITALS: BP 110/46; TEMP 98.3; O2SAT 97
[2025-02-12 20:05] VITALS: BP 134/60; TEMP 98.6; O2SAT 97
[2025-02-13 03:41] VITALS: BP 120/56; TEMP 98.2; O2SAT 95
[2025-02-13 07:03] LABS: PLATELET COUNT, AUTOMATED 244 10^3/uL (150-450)
[2025-02-13 07:29] LABS: CALCIUM LEVEL 8.6 MG/DL (8.3-10.6); CARBON DIOXIDE LEVEL 26.0 MMOL/L (20-31); CHLORIDE LEVEL 105.0 MMOL/L (98-107); CREATININE FOR GFR 1.02 MG/DL (0.55-1.30); GLOMERULAR FILTRATION RATE 59.6 (>45); POTASSIUM SERUM 4.0 MMOL/L (3.5-5.1); SODIUM LEVEL 139.0 MMOL/L (136-145)
[2025-02-13 09:10] LABS: MAGNESIUM LEVEL 1.6 MG/DL (1.8-2.4)
[2025-02-13 12:00] VITALS: BP 133/58; TEMP 97.9; O2SAT 98
[2025-02-13] MEDS: MAG SULF 1GM/100ML (MAG RUN) 1 GM in IV 1 EA IV SCH (14:31)
[2025-02-13 15:30] VITALS: BP 120/55; TEMP 98.3; O2SAT 95
[2025-02-13 20:00] VITALS: BP 143/56; TEMP 98.3; O2SAT 94
[2025-02-14 04:00] VITALS: BP 119/53; TEMP 98.1; O2SAT 95
[2025-02-14 07:00] LABS: PLATELET COUNT, AUTOMATED 227 10^3/uL (150-450)
[2025-02-14 07:21] LABS: CALCIUM LEVEL 8.6 MG/DL (8.3-10.6); CARBON DIOXIDE LEVEL 26.0 MMOL/L (20-31); CHLORIDE LEVEL 104.0 MMOL/L (98-107); CREATININE FOR GFR 1.04 MG/DL (0.55-1.30); GLOMERULAR FILTRATION RATE 58.2 (>45); POTASSIUM SERUM 3.9 MMOL/L (3.5-5.1); SODIUM LEVEL 140.0 MMOL/L (136-145)
[2025-02-14 12:00] VITALS: BP 132/78; TEMP 98.3; O2SAT 97
[2025-02-14 20:07] VITALS: BP 137/68; TEMP 98.5; O2SAT 98
[2025-02-15 00:52] VITALS: BP 125/58; TEMP 98.3; O2SAT 96
[2025-02-15 04:21] VITALS: BP 136/64; TEMP 98; O2SAT 98
[2025-02-15 06:25] LABS: PLATELET COUNT, AUTOMATED 223 10^3/uL (150-450)
[2025-02-15 06:54] LABS: CALCIUM LEVEL 8.4 MG/DL (8.3-10.6); CARBON DIOXIDE LEVEL 28.0 MMOL/L (20-31); CHLORIDE LEVEL 101.0 MMOL/L (98-107); CREATININE FOR GFR 1.04 MG/DL (0.55-1.30); GLOMERULAR FILTRATION RATE 58.2 (>45); MAGNESIUM LEVEL 1.5 MG/DL (1.8-2.4); POTASSIUM SERUM 3.6 MMOL/L (3.5-5.1); SODIUM LEVEL 136.0 MMOL/L (136-145)
[2025-02-15 06:59] VITALS: BP 128/60; TEMP 98.2; O2SAT 95
[2025-02-15] MEDS: MAG SULF 1GM/100ML (MAG RUN) 1 GM in IV 1 EA IV SCH (09:25)
[2025-02-15] MEDS: POTASSIUM CHLORIDE 10MEQ SR TABLET PO SCH (11:01)
[2025-02-15 12:00] VITALS: BP 131/58; TEMP 98.2; O2SAT 96
[2025-02-15] MEDS ORDERED: [UNRECOGNIZED DRUG - OTHER] XX ONE (12:10)
[2025-02-15 20:05] VITALS: BP 121/57; TEMP 98.3; O2SAT 98
[2025-02-15 23:00] VITALS: BP 124/58
[2025-02-16] VITALS (7 sets, daily range): BP systolic 131–158; BP diastolic 63–94; TEMP 98.3–99; O2SAT 93–100
[2025-02-16 06:53] LABS: CALCIUM LEVEL 8.6 MG/DL (8.3-10.6); CARBON DIOXIDE LEVEL 28.0 MMOL/L (20-31); CHLORIDE LEVEL 101.0 MMOL/L (98-107); CREATININE FOR GFR 1.05 MG/DL (0.55-1.30); GLOMERULAR FILTRATION RATE 57.5 (>45); MAGNESIUM LEVEL 1.7 MG/DL (1.8-2.4); POTASSIUM SERUM 4.3 MMOL/L (3.5-5.1); SODIUM LEVEL 137.0 MMOL/L (136-145)
[2025-02-16] MEDS: MAG SULF 1GM/100ML (MAG RUN) 1 GM in IV 1 EA IV SCH (10:47)
[2025-02-16] MEDS: POTASSIUM CHLORIDE 10MEQ SR TABLET PO SCH (10:50)
[2025-02-16] MEDS: LACTULOSE 20 GM/30 ML SYRUP UDC PR ONE (20:08)
[2025-02-16] MEDS: BUMETANIDE 1 MG TAB PO SCH (22:36)
[2025-02-17 04:18] VITALS: BP 160/68; TEMP 98.3; O2SAT 93
[2025-02-17 06:59] LABS: CALCIUM LEVEL 9.5 MG/DL (8.3-10.6); CARBON DIOXIDE LEVEL 28.0 MMOL/L (20-31); CHLORIDE LEVEL 103.0 MMOL/L (98-107); CREATININE FOR GFR 1.0 MG/DL (0.55-1.30); GLOMERULAR FILTRATION RATE 61.0 (>45); MAGNESIUM LEVEL 1.8 MG/DL (1.8-2.4); PHOSPHORUS LEVEL 3.6 MG/DL (2.4-5.1); POTASSIUM SERUM 4.4 MMOL/L (3.5-5.1); SODIUM LEVEL 140.0 MMOL/L (136-145)
[2025-02-17] MEDS ORDERED: LACTULOSE 20 GM/30 ML SYRUP UDC PO PRN (07:05)
[2025-02-17] MEDS: ROSUVASTATIN 10 MG TAB PO SCH (09:02)
[2025-02-17] MEDS: LACTULOSE 20 GM/30 ML SYRUP UDC PO SCH (09:03)
[2025-02-17] MEDS ORDERED: GLUCOSE 4 GM CHEW PO PRN (10:15)
[2025-02-17] MEDS ORDERED: DEXTROSE 50% 50 ML SYRINGE IV PRN (10:15)
[2025-02-17] MEDS ORDERED: GLUCAGON INJ 1 MG VIAL SC PRN (10:15)
[2025-02-17] MEDS: INSULIN LISPRO (NovoLOG) PER UNIT SC SCH (12:00)
[2025-02-17 20:30] VITALS: BP 150/64; TEMP 98.4; O2SAT 96
[2025-02-18 03:24] VITALS: BP 161/66; TEMP 98.5; O2SAT 96
[2025-02-18 08:40] LABS: CALCIUM LEVEL 10.3 MG/DL (8.3-10.6); CARBON DIOXIDE LEVEL 32.0 MMOL/L (20-31); CHLORIDE LEVEL 101.0 MMOL/L (98-107); CREATININE FOR GFR 0.92 MG/DL (0.55-1.30); GLOMERULAR FILTRATION RATE 67.4 (>45); PHOSPHORUS LEVEL 3.5 MG/DL (2.4-5.1); POTASSIUM SERUM 4.3 MMOL/L (3.5-5.1); SODIUM LEVEL 140.0 MMOL/L (136-145)
[2025-02-18] MEDS: amLODIPine 10 MG TAB PO SCH (09:54)
[2025-02-18 12:00] VITALS: BP 144/62; TEMP 98.3; O2SAT 95
[2025-02-18] MEDS: LACTULOSE 20 GM/30 ML SYRUP UDC PO SCH (13:16)
[2025-02-18] MEDS: ONDANSETRON 4MG/2ML VIAL IV ONE (16:29)
[2025-02-18 20:11] VITALS: BP 136/60; TEMP 98.8; O2SAT 94
[2025-02-19 03:51] VITALS: BP 129/59; TEMP 98.7; O2SAT 96
[2025-02-19 06:22] LABS: BASO # 0.1 10^3/uL (0.0-0.2); BASO % 1.6 % (0.0-1.0); EOS # 0.2 10^3/uL (0.0-0.5); EOS % 3.7 % (0.0-3.0); LYMPH # 2.6 10^3/uL (1.5-5.0); LYMPH % 39.8 % (24.0-44.0); MONO # 0.6 10^3/uL (0.0-0.8); MONO % 8.7 % (2.0-8.0); NEUTROPHILS # 3.0 10^3/uL (1.5-8.5); NEUTROPHILS % 46.0 % (36.0-66.0); PLATELET COUNT, AUTOMATED 199 10^3/uL (150-450)
[2025-02-19 06:54] LABS: CALCIUM LEVEL 10.2 MG/DL (8.3-10.6); CARBON DIOXIDE LEVEL 33.0 MMOL/L (20-31); CHLORIDE LEVEL 100.0 MMOL/L (98-107); CREATININE FOR GFR 1.08 MG/DL (0.55-1.30); GLOMERULAR FILTRATION RATE 55.6 (>45); PHOSPHORUS LEVEL 3.3 MG/DL (2.4-5.1); POTASSIUM SERUM 4.3 MMOL/L (3.5-5.1); SODIUM LEVEL 140.0 MMOL/L (136-145)
[2025-02-19 12:00] VITALS: BP 112/51; TEMP 98.2; O2SAT 94
[2025-02-19 21:08] VITALS: BP 129/60; TEMP 98.4; O2SAT 94
[2025-02-20 05:42] VITALS: BP 119/56; TEMP 98.3; O2SAT 95
[2025-02-20 06:44] LABS: CALCIUM LEVEL 10.0 MG/DL (8.3-10.6); CARBON DIOXIDE LEVEL 34.0 MMOL/L (20-31); CHLORIDE LEVEL 97.0 MMOL/L (98-107); CREATININE FOR GFR 1.39 MG/DL (0.55-1.30); GLOMERULAR FILTRATION RATE 41.1 (>45); PHOSPHORUS LEVEL 3.2 MG/DL (2.4-5.1); POTASSIUM SERUM 4.5 MMOL/L (3.5-5.1); SODIUM LEVEL 139.0 MMOL/L (136-145)
[2025-02-20 12:11] VITALS: BP 122/55; TEMP 98.2; O2SAT 96
[2025-02-20] MEDS: LACTULOSE 20 GM/30 ML SYRUP UDC PR ONE (12:54)
[2025-02-20 20:13] VITALS: BP 127/57; TEMP 98.4; O2SAT 95
[2025-02-21 04:48] VITALS: BP 129/56; TEMP 98.2; O2SAT 96
[2025-02-21 06:27] LABS: BASO # 0.1 10^3/uL (0.0-0.2); BASO % 0.8 % (0.0-1.0); EOS # 0.3 10^3/uL (0.0-0.5); EOS % 2.5 % (0.0-3.0); LYMPH # 1.9 10^3/uL (1.5-5.0); LYMPH % 18.0 % (24.0-44.0); MONO # 0.5 10^3/uL (0.0-0.8); MONO % 5.0 % (2.0-8.0); NEUTROPHILS # 7.8 10^3/uL (1.5-8.5); NEUTROPHILS % 73.3 % (36.0-66.0); PLATELET COUNT, AUTOMATED 173 10^3/uL (150-450)
[2025-02-21 06:51] LABS: ALT/SGPT 28.0 U/L (7.0-40); AST/SGOT 45.0 U/L (<34); CALCIUM LEVEL 9.8 MG/DL (8.3-10.6); CARBON DIOXIDE LEVEL 30.0 MMOL/L (20-31); CHLORIDE LEVEL 101.0 MMOL/L (98-107); CREATININE FOR GFR 1.47 MG/DL (0.55-1.30); GLOMERULAR FILTRATION RATE 38.4 (>45); PHOSPHORUS LEVEL 2.9 MG/DL (2.4-5.1); POTASSIUM SERUM 4.8 MMOL/L (3.5-5.1); SODIUM LEVEL 139.0 MMOL/L (136-145)
[2025-02-21] MEDS: LR 1,000 ML IV SCH (09:42)
[2025-02-21 11:30] VITALS: BP 135/62; TEMP 98.4; O2SAT 97
[2025-02-21 19:59] VITALS: BP 134/55; TEMP 98.5; O2SAT 99
[2025-02-21] MEDS: DOCUSATE SODIUM 100 MG CAPSULE PO SCH (20:50)
[2025-02-21] MEDS: INSULIN LISPRO (NovoLOG) PER UNIT SC SCH (20:53)
[2025-02-22 04:39] VITALS: BP 144/74; TEMP 98.4; O2SAT 97
[2025-02-22 06:25] LABS: PLATELET COUNT, AUTOMATED 157 10^3/uL (150-450)
[2025-02-22 06:58] LABS: ALT/SGPT 30.0 U/L (7.0-40); AST/SGOT 43.0 U/L (<34); CALCIUM LEVEL 9.5 MG/DL (8.3-10.6); CARBON DIOXIDE LEVEL 31.0 MMOL/L (20-31); CHLORIDE LEVEL 103.0 MMOL/L (98-107); CREATININE FOR GFR 1.49 MG/DL (0.55-1.30); GLOMERULAR FILTRATION RATE 37.8 (>45); POTASSIUM SERUM 4.8 MMOL/L (3.5-5.1); SODIUM LEVEL 140.0 MMOL/L (136-145)
[2025-02-22 12:05] VITALS: BP 146/67; TEMP 97.9; O2SAT 99
[2025-02-22] MEDS ORDERED: LR 1,000 ML IV SCH (12:15)
[2025-02-22] MEDS ORDERED: LACTULOSE 20 GM/30 ML SYRUP UDC PR ONE (15:40)
[2025-02-22] MEDS: LACTULOSE 20 GM/30 ML SYRUP UDC PR ONE (16:10)
[2025-02-22] MEDS: LACTULOSE 20 GM/30 ML SYRUP UDC PO SCH (17:57)
[2025-02-22] MEDS: LR 1,000 ML IV SCH (18:45)
[2025-02-22 20:51] VITALS: BP 159/66; TEMP 97.5; O2SAT 97
[2025-02-23 03:41] VITALS: BP 145/70; TEMP 98.2; O2SAT 97
[2025-02-23 06:42] LABS: PLATELET COUNT, AUTOMATED 182 10^3/uL (150-450)
[2025-02-23 07:16] LABS: ALT/SGPT 27.0 U/L (7.0-40); AST/SGOT 49.0 U/L (<34); CALCIUM LEVEL 10.0 MG/DL (8.3-10.6); CARBON DIOXIDE LEVEL 23.0 MMOL/L (20-31); CHLORIDE LEVEL 106.0 MMOL/L (98-107); CREATININE FOR GFR 1.4 MG/DL (0.55-1.30); GLOMERULAR FILTRATION RATE 40.7 (>45); POTASSIUM SERUM 4.6 MMOL/L (3.5-5.1); SODIUM LEVEL 139.0 MMOL/L (136-145)
[2025-02-23 12:00] VITALS: BP 143/65; TEMP 98.3; O2SAT 97
[2025-02-23] MEDS: LACTULOSE 20 GM/30 ML SYRUP UDC PR ONE (16:20)
[2025-02-23 20:18] VITALS: BP 132/59; TEMP 98.7; O2SAT 98
[2025-02-23 21:08] VITALS: BP 109/55; TEMP 98.7; O2SAT 99
[2025-02-24 04:00] VITALS: BP_SYST 121; BP_SYST 124; BP_DIAS 64; BP_DIAS 65; TEMP 98.2; TEMP 98.3; O2SAT 93; O2SAT 98
[2025-02-24 06:50] LABS: PLATELET COUNT, AUTOMATED 177 10^3/uL (150-450)
[2025-02-24 07:20] LABS: ALT/SGPT 34.0 U/L (7.0-40); AST/SGOT 49.0 U/L (<34); CALCIUM LEVEL 9.6 MG/DL (8.3-10.6); CARBON DIOXIDE LEVEL 24.0 MMOL/L (20-31); CHLORIDE LEVEL 105.0 MMOL/L (98-107); CREATININE FOR GFR 1.6 MG/DL (0.55-1.30); GLOMERULAR FILTRATION RATE 34.7 (>45); POTASSIUM SERUM 4.5 MMOL/L (3.5-5.1); SODIUM LEVEL 138.0 MMOL/L (136-145)
[2025-02-24] MEDS: LanTUS (INSULIN GLARGINE INJ) 1 UNITS/0.01 ML SC SCH (08:44)
[2025-02-24] MEDS: NS (Normal Saline) 0.9% 1,000 ML IV SCH (10:26)
[2025-02-24 12:33] VITALS: BP 128/60; TEMP 98.3; O2SAT 98
[2025-02-24 20:02] VITALS: BP 116/50; TEMP 98.5; O2SAT 96
[2025-02-25 04:47] VITALS: BP 117/53; TEMP 98.6; O2SAT 97
[2025-02-25 04:55] VITALS: TEMP 99.4
[2025-02-25 06:19] VITALS: TEMP 98.4
[2025-02-25 06:26] LABS: PLATELET COUNT, AUTOMATED 190 10^3/uL (150-450)
[2025-02-25 06:50] LABS: ALT/SGPT 32.0 U/L (7.0-40); AST/SGOT 47.0 U/L (<34); CALCIUM LEVEL 8.9 MG/DL (8.3-10.6); CARBON DIOXIDE LEVEL 24.0 MMOL/L (20-31); CHLORIDE LEVEL 106.0 MMOL/L (98-107); CREATININE FOR GFR 1.61 MG/DL (0.55-1.30); GLOMERULAR FILTRATION RATE 34.4 (>45); POTASSIUM SERUM 4.5 MMOL/L (3.5-5.1); SODIUM LEVEL 137.0 MMOL/L (136-145)
[2025-02-25] MEDS: LACTULOSE 20 GM/30 ML SYRUP UDC PR SCH (12:26)
[2025-02-25 12:51] VITALS: BP 105/52; TEMP 98.6; O2SAT 96
[2025-02-25 20:28] VITALS: BP 127/56; TEMP 98.9; O2SAT 96
[2025-02-26 04:38] VITALS: BP 131/61; TEMP 98.5; O2SAT 97
[2025-02-26 06:06] LABS: PLATELET COUNT, AUTOMATED 185 10^3/uL (150-450)
[2025-02-26 06:24] LABS: ALT/SGPT 35.0 U/L (7.0-40); AST/SGOT 54.0 U/L (<34); CALCIUM LEVEL 9.1 MG/DL (8.3-10.6); CARBON DIOXIDE LEVEL 23.0 MMOL/L (20-31); CHLORIDE LEVEL 107.0 MMOL/L (98-107); CREATININE FOR GFR 1.44 MG/DL (0.55-1.30); GLOMERULAR FILTRATION RATE 39.4 (>45); POTASSIUM SERUM 4.3 MMOL/L (3.5-5.1); SODIUM LEVEL 139.0 MMOL/L (136-145)
[2025-02-26] MEDS: LanTUS (INSULIN GLARGINE INJ) 1 UNITS/0.01 ML SC SCH (09:31)
[2025-02-26] MEDS: LACTULOSE 20 GM/30 ML SYRUP UDC PO SCH (09:34)
[2025-02-26 11:43] VITALS: BP 134/63; TEMP 98.1; O2SAT 98
[2025-02-26] MEDS: FUROSEMIDE 40 MG/4 ML VIAL IV SCH (12:57)
[2025-02-26 17:36] VITALS: BP 136/58; TEMP 98.6; O2SAT 100
[2025-02-26 19:55] VITALS: BP 143/65; TEMP 98.6; O2SAT 99
[2025-02-27] VITALS (10 sets, daily range): BP systolic 121–173; BP diastolic 51–72; TEMP 97.9–99.1; O2SAT 95–99
[2025-02-27 06:51] LABS: PLATELET COUNT, AUTOMATED 186 10^3/uL (150-450)
[2025-02-27 07:15] LABS: ALT/SGPT 40.0 U/L (7.0-40); AST/SGOT 62.0 U/L (<34); CALCIUM LEVEL 9.3 MG/DL (8.3-10.6); CARBON DIOXIDE LEVEL 21.0 MMOL/L (20-31); CHLORIDE LEVEL 108.0 MMOL/L (98-107); CREATININE FOR GFR 1.32 MG/DL (0.55-1.30); GLOMERULAR FILTRATION RATE 43.7 (>45); POTASSIUM SERUM 4.3 MMOL/L (3.5-5.1); SODIUM LEVEL 138.0 MMOL/L (136-145)
[2025-02-27] MEDS ORDERED: NS (Normal Saline) 0.9% 1,000 ML IV SCH (14:35)
[2025-02-27] MEDS ORDERED: HEPARIN 1,000 UNITS/ML 10 ML VIAL (FOR RADIOLOGY & DIALYSIS ONLY) IV PRN (14:35)
[2025-02-27] MEDS: MIDAZOLAM INJ 2 MG/2 ML VIAL IV PRN (15:30)
[2025-02-27] MEDS: LIDOCAINE 1% MDV 20 ML VIAL SC SCH (16:12)
[2025-02-27] MEDS: ISOVUE-300 61% 100 ML VIAL IV SCH (16:15)
[2025-02-27] MEDS: NS (Normal Saline) 0.9% 1,000 ML IV SCH (16:15)
[2025-02-28 04:14] VITALS: BP 110/52; TEMP 98.7; O2SAT 100
[2025-02-28 06:51] LABS: PLATELET COUNT, AUTOMATED 173 10^3/uL (150-450)
[2025-02-28 07:22] LABS: ALT/SGPT 52.0 U/L (7.0-40); AST/SGOT 75.0 U/L (<34); CALCIUM LEVEL 8.9 MG/DL (8.3-10.6); CARBON DIOXIDE LEVEL 17.0 MMOL/L (20-31); CHLORIDE LEVEL 110.0 MMOL/L (98-107); CREATININE FOR GFR 1.35 MG/DL (0.55-1.30); GLOMERULAR FILTRATION RATE 42.5 (>45); POTASSIUM SERUM 5.0 MMOL/L (3.5-5.1); SODIUM LEVEL 138.0 MMOL/L (136-145)
[2025-02-28 12:00] VITALS: BP 125/56; TEMP 98.7; O2SAT 99
[2025-02-28] MEDS: LACTULOSE 20 GM/30 ML SYRUP UDC PO SCH (17:08)
[2025-02-28 19:52] VITALS: BP 119/57; TEMP 99.2; O2SAT 96
[2025-03-01 03:20] VITALS: BP 130/63; TEMP 98.3; O2SAT 98
[2025-03-01 07:09] LABS: PLATELET COUNT, AUTOMATED 161 10^3/uL (150-450)
[2025-03-01 07:38] LABS: ALT/SGPT 43.0 U/L (7.0-40); AST/SGOT 54.0 U/L (<34); CALCIUM LEVEL 8.3 MG/DL (8.3-10.6); CARBON DIOXIDE LEVEL 18.0 MMOL/L (20-31); CHLORIDE LEVEL 111.0 MMOL/L (98-107); CREATININE FOR GFR 1.44 MG/DL (0.55-1.30); GLOMERULAR FILTRATION RATE 39.4 (>45); POTASSIUM SERUM 4.8 MMOL/L (3.5-5.1); SODIUM LEVEL 137.0 MMOL/L (136-145)
[2025-03-01 08:54] VITALS: BP 121/58
[2025-03-01] MEDS: FUROSEMIDE 80 MG TAB PO SCH (08:54)
[2025-03-01] MEDS ORDERED: LACT10SO94 PO (11:37)
[2025-03-01] MEDS ORDERED: GLUC1TES2 XX (11:37)
[2025-03-01] MEDS ORDERED: FURO40TA2 PO (11:37)
[2025-03-01] MEDS ORDERED: LANTINJ4 SC (11:37)
[2025-03-01] MEDS ORDERED: PEN-308 SC (11:37)
[2025-03-01] MEDS ORDERED: BLOOKIT21 XX (11:37)
[2025-03-01] MEDS ORDERED: LANC30MI XX (11:37)
[2025-03-01 12:17] VITALS: BP 108/51; TEMP 98.5; O2SAT 96
[2025-03-01 14:35] LABS: ESTIMATED AVERAGE GLUCOSE 157.0 MG/DL (60-110)
== END 2025-03-01 14:02 | disposition home health service (06) | DRG 907 ==
LOC: M ED 11:43 → EDBD 11:43 → M ED INP 16:32 → M ICU 18:27 → M MSPAV 02-02 17:51
PROVIDERS: ADMIT Student in an Organized Health Care Education/Training Program; ATTEND Internal Medicine
PROC: 0W9G3ZZ Drainage of Peritoneal Cavity, Percutaneous Approach (ICD-10-PCS; 2025-01-30)
PROC: 0FP430Z Removal of Drainage Device from Gallbladder, Percutaneous Approach (ICD-10-PCS; 2025-01-31)
PROC: 06L Lower Veins, Occlusion (ICD-10-PCS; principal; 2025-02-27 14:00)
DX: T85.528A Displacement of other gastrointestinal prosthetic devices, implants and grafts, initial encounter (principal); A41.9 Sepsis, unspecified organism; R65.20 Severe sepsis without septic shock; K65.8 Other peritonitis; I50.30 Unspecified diastolic (congestive) heart failure; R18.8 Other ascites; K76.6 Portal hypertension; E87.20 Acidosis, unspecified; N17.9 Acute kidney failure, unspecified; E87.4 Mixed disorder of acid-base balance; I11.0 Hypertensive heart disease with heart failure; E11.43 Type 2 diabetes mellitus with diabetic autonomic (poly)neuropathy; E78.5 Hyperlipidemia, unspecified; K75.81 Nonalcoholic steatohepatitis (NASH); D64.9 Anemia, unspecified; I25.10 Atherosclerotic heart disease of native coronary artery without angina pectoris; Z95.1 Presence of aortocoronary bypass graft; K76.82 Hepatic encephalopathy; Z79.899 Other long term (current) drug therapy; E66.9 Obesity, unspecified; R26.89 Other abnormalities of gait and mobility; E87.5 Hyperkalemia; R16.1 Splenomegaly, not elsewhere classified; M47.892 Other spondylosis, cervical region; E83.42 Hypomagnesemia; N18.32 Chronic kidney disease, stage 3b; Y83.1 Surgical operation with implant of artificial internal device as the cause of abnormal reaction of the patient, or of later complication, without mention of misadventure at the time of the procedure

== ENCOUNTER → 2025-03-13 | Outpatient (REF) | payer MEDICARE ==
[~2025-03-13] MED LIST changes: +BLOOKIT21 XX; +GLUC1TES2 XX; +LACT10SO94 PO; +LANC30MI XX; +LANTINJ4 SC; +PEN-308 SC
== END ==
LOC: M LAB REF 16:57
PROVIDERS: ATTEND Internal Medicine Nephrology
DX: N39.0 Urinary tract infection, site not specified (principal)

== ENCOUNTER → 2025-03-16 | Outpatient (POV) | payer MEDICARE | LOC: M IRPOV 10:00 | PROVIDERS: ATTEND Registered Nurse School | DX: K74.60 Unspecified cirrhosis of liver (principal) ==

== ENCOUNTER → 2025-03-28 | Outpatient (CLI) | payer MEDICARE ==
[~2025-03-28] MED LIST changes: +ACETAMINOPHEN 325 MG TAB PO PRN
[2025-03-28 12:15] VITALS: TEMP 98
[2025-03-28 13:33] VITALS: BP 150/65; O2SAT 97
[2025-03-28 13:45] VITALS: BP 141/64; O2SAT 99
== END ==
LOC: M IRPRO 11:48
PROVIDERS: ATTEND Registered Nurse School
DX: R18.8 Other ascites (principal)
CPT/HCPCS: 36415; 49083; 80053; 83521; 84155; 84165; 85025; 86334; 96365; P9047